=== PATIENT | male | born 1975 | race Caucasian/White ===

== ENCOUNTER → 2017-07-01 | Outpatient (CLI) | payer BC, OTHER ==
[2017-07-01 10:27] LABS: ALBUMIN/GLOBULIN RATIO 1.21 (1.00-1.93); ALKALINE PHOSPHATASE 94 U/L (45-117); ALT/SGPT 33 U/L (12-78); ANION GAP 10 MEQ/L (8-16); AST/SGOT 21 U/L (15-37); BILIRUBIN,TOTAL 0.5 MG/DL (0.2-1.0); BLOOD UREA NITROGEN 19 MG/DL (7-18); CALCIUM LEVEL 9.6 MG/DL (8.5-10.1); CARBON DIOXIDE LEVEL 27 MEQ/L (21-32); CHLORIDE LEVEL 104 MEQ/L (98-107); CHOLESTEROL LEVEL 206 MG/DL (<200); CREATININE FOR GFR 1.08 MG/DL (0.70-1.30); GLOMERULAR FILTRATION RATE > 60.0 (>60); GLUCOSE, FASTING 98 MG/DL (70-105); POTASSIUM SERUM 4.6 MEQ/L (3.5-5.1); SODIUM LEVEL 141 MEQ/L (136-145); TOTAL PROTEIN 7.3 GM/DL (6.4-8.2); TRIGLYCERIDES LEVEL 198 MG/DL (<150)
== END ==
LOC: M SMT 08:45
PROVIDERS: ATTEND Emergency Medicine
DX: I10 Essential (primary) hypertension (principal); E78.5 Hyperlipidemia, unspecified; R73.01 Impaired fasting glucose

== ENCOUNTER 2018-02-11 19:31 | Emergency (ER) | payer OTHER, BC ==
[2018-02-11] MEDS: IBUPROFEN 600 MG TAB PO (22:15)
== END 2018-02-11 22:54 | disposition home or self-care (01) ==
LOC: M ED 19:31
DX: S59.902A Unspecified injury of left elbow, initial encounter (principal); X58.XXXA Exposure to other specified factors, initial encounter; Y92.89 Other specified places as the place of occurrence of the external cause; Y35.811A Legal intervention involving manhandling, law enforcement official injured, initial encounter; Y99.0 Civilian activity done for income or pay; I10 Essential (primary) hypertension; Z79.899 Other long term (current) drug therapy
CPT/HCPCS: 73080

== ENCOUNTER → 2018-08-09 | Outpatient (CLI) | payer BC, OTHER ==
[2018-08-09 13:36] LABS: ALBUMIN 4.1 GM/DL (3.2-5.2); ALBUMIN/GLOBULIN RATIO 1.32 (1.00-1.93); ALKALINE PHOSPHATASE 100 U/L (45-117); ALT/SGPT 44 U/L (12-78); ANION GAP 5 MEQ/L (8-16); AST/SGOT 26 U/L (7-37); BILIRUBIN,TOTAL 0.4 MG/DL (0.2-1.0); BLOOD UREA NITROGEN 20 MG/DL (7-18); CALCIUM LEVEL 9.6 MG/DL (8.5-10.1); CARBON DIOXIDE LEVEL 29 MEQ/L (21-32); CHLORIDE LEVEL 106 MEQ/L (98-107); CHOLESTEROL LEVEL 241 MG/DL (<200); CHOLESTEROL RISK RATIO 6.179 (<5); CREATININE FOR GFR 0.95 MG/DL (0.70-1.30); GLOMERULAR FILTRATION RATE > 60.0 (>60); GLUCOSE, FASTING 96 MG/DL (70-100); HDL CHOLESTEROL 39 MG/DL (>40); LDL CHOLESTEROL 161 MG/DL (<100); NON-HDL-C 202 MG/DL; POTASSIUM SERUM 5.2 MEQ/L (3.5-5.1); SODIUM LEVEL 140 MEQ/L (136-145); TOTAL PROTEIN 7.2 GM/DL (6.4-8.2); TRIGLYCERIDES LEVEL 204 MG/DL (<150)
[2018-08-09 13:57] LABS: ESTIMATED AVERAGE GLUCOSE 108 MG/DL (60-110); HEMOGLOBIN A1c 5.4 %
== END ==
LOC: M SMT 08:03
DX: I10 Essential (primary) hypertension (principal); E78.5 Hyperlipidemia, unspecified; R73.01 Impaired fasting glucose
CPT/HCPCS: 80053

== ENCOUNTER 2019-05-25 08:12 | Emergency (ER) | payer BC, OTHER ==
[~2019-05-25] VITALS: Ht 180.3 cm; Wt 101.8 kg
[~2019-05-25 08:12] MED LIST: LOSA50TA88 PO; MULT1TAB10 PO; PROBCAP4 PO; TIZANIDINE; VITA500046 PO
--- NOTE | 2019-05-25 09:33 | REP ---
CHEST PA AND LATERAL: 05/25/2019. Clinical history: Cough, dyspnea. Comparison: 10/09/2010. Findings: There is patchy perihilar infiltrate or atelectasis in the left mid lung zone seen anteriorly on the lateral view involving the left upper lobe. No definite effusion or other infiltrates/atelectasis. Heart size not enlarged. There is no specific chamber enlargement. Airway and aorta intact. No widening the mediastinum. Bony thorax shows no compression deformity or focal lesion. No free air under the diaphragm. Impression: 1. Left mid lung zone anterior patchy infiltrate or atelectasis involving the left upper lobe. No pleural effusion or other infiltrate. Please correlate clinically. 2. No gross cardiomegaly, vascular redistribution, edema or other acute finding. Electronically Signed by Mikey Yanez MD 05/25/2019 03:03 P
[2019-05-25 11:27] LABS: BASO # 0.1 10^3/uL (0.0-0.2); BASO % 0.4 % (0.0-1.0); EOS % 0.1 % (0.0-3.0); HEMATOCRIT 43.1 % (42.0-52.0); HEMOGLOBIN 15.1 g/dl (13.5-17.5); LYMPH # 1.2 10^3/uL (1.5-4.5); LYMPH % 10.3 % (24.0-44.0); MEAN CORPUSCULAR HEMOGLOBIN 30.4 pg (27.0-33.0); MEAN CORPUSCULAR VOLUME 86.7 fl (80.0-96.0); MONO # 1.1 10^3/uL (0.0-0.8); MONO % 9.7 % (0.0-5.0); NEUTROPHILS # 9.2 10^3/uL (1.8-7.7); NEUTROPHILS % 79.2 % (36.0-66.0); PLATELET COUNT, AUTOMATED 245 10^3/uL (150-450); RED BLOOD COUNT 4.97 10^6/uL (4.30-6.10); WHITE BLOOD COUNT 11.6 10^3/uL (4.0-10.0)
[2019-05-25 11:58] LABS: ALBUMIN 3.7 GM/DL (3.2-5.2); BILIRUBIN,DIRECT 0.1 MG/DL (0.0-0.2); BILIRUBIN,TOTAL 0.5 MG/DL (0.2-1.0); TOTAL PROTEIN 6.8 GM/DL (6.4-8.2)
[2019-05-25] MEDS ORDERED: AZIT-12 PO (12:30)
[2019-05-25] MEDS ORDERED: TESS100C PO (12:30)
[2019-05-25] MEDS ORDERED: PROAAER10 INH (12:30)
[2019-05-25 12:37] VITALS: BP 120/79
== END 2019-05-25 12:44 | disposition home or self-care (01) ==
LOC: M ED 08:12
DX: J45.909 Unspecified asthma, uncomplicated (principal); J18.1 Lobar pneumonia, unspecified organism; I10 Essential (primary) hypertension; Z79.899 Other long term (current) drug therapy

== ENCOUNTER → 2019-06-29 | Outpatient (CLI) | payer BC, OTHER ==
[~2019-06-29] MED LIST changes: +AZIT-12 PO; +PROAAER10 INH; +TESS100C PO
[2019-06-29 13:08] LABS: BASO # 0.1 10^3/uL (0.0-0.2); BASO % 0.8 % (0.0-1.0); EOS # 0.3 10^3/uL (0.0-0.5); EOS % 3.2 % (0.0-3.0); HEMATOCRIT 46.2 % (42.0-52.0); HEMOGLOBIN 16.1 g/dl (13.5-17.5); LYMPH # 1.8 10^3/uL (1.5-5.0); LYMPH % 23.2 % (24.0-44.0); MEAN CORPUSCULAR HEMOGLOBIN 30.1 pg (27.0-33.0); MEAN CORPUSCULAR HGB CONC 34.8 g/dl (32.0-36.5); MEAN CORPUSCULAR VOLUME 86.5 fl (80.0-96.0); MONO # 0.6 10^3/uL (0.0-0.8); MONO % 7.2 % (0.0-5.0); NEUTROPHILS % 64.7 % (36.0-66.0); PLATELET COUNT, AUTOMATED 237 10^3/uL (150-450); RED BLOOD COUNT 5.34 10^6/uL (4.30-6.10); WHITE BLOOD COUNT 7.7 10^3/uL (4.0-10.0)
[2019-06-29 13:11] LABS: APPEARANCE, URINE HAZY (CLEAR); BACTERIA, URINE AUTO NEGATIVE (NEGATIVE); BILIRUBIN, URINE AUTO NEGATIVE (NEGATIVE); BLOOD, URINE BLOOD NEGATIVE (NEGATIVE); COLOR, URINE YELLOW (YELLOW); GLUCOSE, URINE (UA) AUTO NEGATIVE (NEGATIVE); KETONE, URINE AUTO NEGATIVE (NEGATIVE); LEUKOCYTE ESTERASE, URINE AUTO NEGATIVE (NEGATIVE); NITRITE, URINE AUTO NEGATIVE (NEGATIVE); PROTEIN, URINE AUTO 1+ mg/dL (NEGATIVE); RBC, URINE AUTO 0 /HPF (0-3); SPECIFIC GRAVITY URINE AUTO 1.016 (1.002-1.035); SQUAMOUS EPITHELIAL CELL UR AU 0 /HPF (0-6); UROBILINOGEN, URINE AUTO 0.2 mg/dL (0.0-2.0); WBC, URINE AUTO 0 /HPF (0-3)
[2019-06-29 13:54] LABS: HEMOGLOBIN A1c 5.4 %
[2019-06-29 13:55] LABS: ALBUMIN 4.1 GM/DL (3.2-5.2); ALT/SGPT 36 U/L (12-78); BILIRUBIN,TOTAL 0.4 MG/DL (0.2-1.0); BLOOD UREA NITROGEN 19 MG/DL (7-18); CALCIUM LEVEL 10.5 MG/DL (8.5-10.1); CARBON DIOXIDE LEVEL 27 MEQ/L (21-32); CHLORIDE LEVEL 103 MEQ/L (98-107); CHOLESTEROL LEVEL 275 MG/DL (<200); CHOLESTEROL RISK RATIO 5.288 (<5); CREATININE FOR GFR 1.13 MG/DL (0.70-1.30); FREE T4 0.97 NG/DL (0.76-1.46); GLOMERULAR FILTRATION RATE > 60.0 (>60); GLUCOSE, FASTING 99 MG/DL (70-100); HDL CHOLESTEROL 52 MG/DL (>40); LDL CHOLESTEROL 179 MG/DL (<100); NON-HDL-C 223 MG/DL; POTASSIUM SERUM 4.8 MEQ/L (3.5-5.1); SODIUM LEVEL 138 MEQ/L (136-145); TOTAL PROTEIN 7.2 GM/DL (6.4-8.2); TRIGLYCERIDES LEVEL 222 MG/DL (<150)
[2019-06-30 15:06] LABS: Lyme Disease IgG/IgM Antibodie <0.91 ISR (0.00-0.90); Lyme Disease IgM Ab Quantitati <0.80 index (0.00-0.79)
== END ==
LOC: M SMT 09:22
PROVIDERS: ATTEND Family Medicine
DX: M25.50 Pain in unspecified joint (principal); Z13.228 Encounter for screening for other metabolic disorders

== ENCOUNTER → 2019-09-28 | Outpatient (REF) | payer OTHER ==
[2019-09-28 14:10] LABS: ALBUMIN 4.1 GM/DL (3.2-5.2); ALT/SGPT 44 U/L (12-78); BILIRUBIN,TOTAL 0.7 MG/DL (0.2-1.0); BLOOD UREA NITROGEN 22 MG/DL (7-18); CALCIUM LEVEL 9.5 MG/DL (8.5-10.1); CARBON DIOXIDE LEVEL 32 MEQ/L (21-32); CHLORIDE LEVEL 102 MEQ/L (98-107); CHOLESTEROL LEVEL 185 MG/DL (<200); CHOLESTEROL RISK RATIO 4.625 (<5); CREATININE FOR GFR 0.98 MG/DL (0.70-1.30); GLOMERULAR FILTRATION RATE > 60.0 (>60); GLUCOSE, FASTING 91 MG/DL (70-100); HDL CHOLESTEROL 40 MG/DL (>40); LDL CHOLESTEROL 94 MG/DL (<100); NON-HDL-C 145 MG/DL; POTASSIUM SERUM 4.7 MEQ/L (3.5-5.1); SODIUM LEVEL 139 MEQ/L (136-145); TOTAL PROTEIN 7.4 GM/DL (6.4-8.2); TRIGLYCERIDES LEVEL 257 MG/DL (<150)
== END ==
LOC: M LAB REF 12:49
PROVIDERS: ATTEND Family Medicine
DX: E78.5 Hyperlipidemia, unspecified (principal)

== ENCOUNTER → 2019-12-11 | Outpatient (REF) | payer OTHER | LOC: M LAB REF 18:35 | PROVIDERS: ATTEND Dermatology | DX: D48.9 Neoplasm of uncertain behavior, unspecified (principal) ==

== ENCOUNTER → 2020-07-09 | Outpatient (REF) | payer OTHER ==
[~2020-07-09] MED LIST changes: +ATOR1TAB19 PO
[2020-07-09 13:20] LABS: BASO # 0.1 10^3/uL (0.0-0.2); BASO % 0.7 % (0.0-1.0); EOS # 0.2 10^3/uL (0.0-0.5); EOS % 3.2 % (0.0-3.0); HEMATOCRIT 48.3 % (42.0-52.0); HEMOGLOBIN 16.7 g/dl (13.5-17.5); LYMPH # 1.6 10^3/uL (1.5-5.0); LYMPH % 23.9 % (24.0-44.0); MEAN CORPUSCULAR HEMOGLOBIN 30.5 pg (27.0-33.0); MEAN CORPUSCULAR HGB CONC 34.6 g/dl (32.0-36.5); MEAN CORPUSCULAR VOLUME 88.1 fl (80.0-96.0); MONO # 0.7 10^3/uL (0.0-0.8); MONO % 9.6 % (0.0-5.0); NEUTROPHILS # 4.3 10^3/uL (1.5-8.5); NEUTROPHILS % 62.2 % (36.0-66.0); PLATELET COUNT, AUTOMATED 286 10^3/uL (150-450); RED BLOOD COUNT 5.48 10^6/uL (4.30-6.10); WHITE BLOOD COUNT 6.9 10^3/uL (4.0-10.0)
[2020-07-09 13:33] LABS: ALBUMIN 4.1 GM/DL (3.2-5.2); ALT/SGPT 45 U/L (12-78); BILIRUBIN,TOTAL 0.6 MG/DL (0.2-1.0); BLOOD UREA NITROGEN 16 MG/DL (7-18); CALCIUM LEVEL 9.5 MG/DL (8.5-10.1); CARBON DIOXIDE LEVEL 28 MEQ/L (21-32); CHLORIDE LEVEL 106 MEQ/L (98-107); CHOLESTEROL LEVEL 174 MG/DL (<200); CHOLESTEROL RISK RATIO 3.702 (<5); CREATININE FOR GFR 1.01 MG/DL (0.70-1.30); FREE T4 1.03 NG/DL (0.76-1.46); GLOMERULAR FILTRATION RATE > 60.0 (>60); GLUCOSE, FASTING 105 MG/DL (70-100); HDL CHOLESTEROL 47 MG/DL (>40); LDL CHOLESTEROL 94 MG/DL (<100); NON-HDL-C 127 MG/DL; POTASSIUM SERUM 4.6 MEQ/L (3.5-5.1); SODIUM LEVEL 139 MEQ/L (136-145); TOTAL PROTEIN 7.3 GM/DL (6.4-8.2); TRIGLYCERIDES LEVEL 163 MG/DL (<150)
[2020-07-09 13:38] LABS: TOTAL 25(OH) VITAMIN D 58.2 NG/ML (30.0-100.0)
[2020-07-11 23:07] LABS: Lyme Disease IgG Ab 18 kDa Ban Absent (.); Lyme Disease IgG Ab 23 kDa Ban Absent (.); Lyme Disease IgG Ab 28 kDa Ban Absent (.); Lyme Disease IgG Ab 30 kDa Ban Absent (.); Lyme Disease IgG Ab 39 kDa Ban Absent (.); Lyme Disease IgG Ab 41 kDa Ban Absent (.); Lyme Disease IgG Ab 45 kDa Ban Absent (.); Lyme Disease IgG Ab 58 kDa Ban Absent (.); Lyme Disease IgG Ab 66 kDa Ban Absent (.); Lyme Disease IgG Ab 93 kDa Ban Absent (.); Lyme Disease IgG West Blot Int Negative (.); Lyme Disease IgG/IgM Antibodie <0.91 ISR (0.00-0.90); Lyme Disease IgM Ab 23 kDa Ban Absent (.); Lyme Disease IgM Ab 39 kDa Ban Present (.); Lyme Disease IgM Ab 41 kDa Ban Present (.); Lyme Disease IgM Ab Quantitati 0.82 index (0.00-0.79); Lyme Disease IgM West Blot Int Positive (.)
== END ==
LOC: M LAB REF 12:27
PROVIDERS: ATTEND Physician Assistant
DX: L98.9 Disorder of the skin and subcutaneous tissue, unspecified (principal); E78.5 Hyperlipidemia, unspecified; I10 Essential (primary) hypertension; Z68.31 Body mass index [BMI] 31.0-31.9, adult; E66.09 Other obesity due to excess calories

== ENCOUNTER 2020-07-29 14:50 | Emergency (ER) | payer BC, OTHER ==
[~2020-07-29] VITALS: Ht 180.3 cm; Wt 105.1 kg
[~2020-07-29 14:50] MED LIST changes: -ATOR1TAB19 PO
[2020-07-29] MEDS ORDERED: ATOR1TAB19 PO (15:13)
--- NOTE | 2020-07-29 16:20 | REPVR ---
PROCEDURE INFORMATION: Exam: CT Abdomen And Pelvis Without Contrast Exam date and time: 07/29/2020 4:08 PM Age: 45 years old Clinical indication: Abdominal pain; Flank; Left; Additional info: Left flank pain TECHNIQUE: Imaging protocol: Computed tomography of the abdomen and pelvis without contrast. Radiation optimization: All CT scans at this facility use at least one of these dose optimization techniques: automated exposure control; mA and/or kV adjustment per patient size (includes targeted exams where dose is matched to clinical indication); or iterative reconstruction. COMPARISON: No relevant prior studies available. FINDINGS: Liver: Unremarkable. Gallbladder and bile ducts: Unremarkable. No ductal dilation. Pancreas: Unremarkable. No ductal dilation. Spleen: Unremarkable. Adrenals: Unremarkable. Kidneys and ureters: No hydronephrosis or stones. Stomach and bowel: Stomach is unremarkable. No small bowel obstruction. Large bowel is unremarkable. Appendix: No evidence of appendicitis. Intraperitoneal space: No pneumoperitoneum. No significant fluid collection. Vasculature: Unremarkable. Lymph nodes: No enlarged lymph nodes. Urinary bladder: Unremarkable as visualized. Reproductive: Unremarkable as visualized. Bones/joints: No acute osseus lesion or fracture. Soft tissues: Unremarkable. IMPRESSION: No acute intra-abdominal findings. Electronically signed by: Chaz Mcgovern On 07/29/2020 16:20:06 PM
[2020-07-29 16:34] LABS: ALBUMIN 3.9 GM/DL (3.2-5.2); ALT/SGPT 60 U/L (12-78); BILIRUBIN,DIRECT 0.1 MG/DL (0.0-0.2); BILIRUBIN,TOTAL 0.3 MG/DL (0.2-1.0); BLOOD UREA NITROGEN 18 MG/DL (7-18); CALCIUM LEVEL 9.8 MG/DL (8.5-10.1); CARBON DIOXIDE LEVEL 28 MEQ/L (21-32); CHLORIDE LEVEL 105 MEQ/L (98-107); CREATININE FOR GFR 1.01 MG/DL (0.70-1.30); GLOMERULAR FILTRATION RATE > 60.0 (>60); GLUCOSE, FASTING 125 MG/DL (70-100); POTASSIUM SERUM 4.3 MEQ/L (3.5-5.1); SODIUM LEVEL 139 MEQ/L (136-145); TOTAL PROTEIN 7.5 GM/DL (6.4-8.2)
[2020-07-29 17:25] VITALS: BP 169/98
== END 2020-07-29 17:25 | disposition home or self-care (01) ==
LOC: M ED 14:50
DX: R10.32 Left lower quadrant pain (principal); R42 Dizziness and giddiness; N50.812 Left testicular pain; I10 Essential (primary) hypertension; E78.5 Hyperlipidemia, unspecified; A69.20 Lyme disease, unspecified; Z79.899 Other long term (current) drug therapy

== ENCOUNTER → 2020-07-30 | Outpatient (REF) | payer BC, OTHER ==
[~2020-07-30] MED LIST changes: +ATOR1TAB19 PO
[2020-07-30 15:58] LABS: BASO # 0.1 10^3/uL (0.0-0.2); BASO % 0.6 % (0.0-1.0); EOS # 0.2 10^3/uL (0.0-0.5); EOS % 1.7 % (0.0-3.0); HEMATOCRIT 48.3 % (42.0-52.0); HEMOGLOBIN 16.8 g/dl (13.5-17.5); LYMPH # 1.9 10^3/uL (1.5-5.0); LYMPH % 21.2 % (24.0-44.0); MEAN CORPUSCULAR HEMOGLOBIN 30.4 pg (27.0-33.0); MEAN CORPUSCULAR HGB CONC 34.8 g/dl (32.0-36.5); MEAN CORPUSCULAR VOLUME 87.3 fl (80.0-96.0); MONO # 0.7 10^3/uL (0.0-0.8); NEUTROPHILS # 6.1 10^3/uL (1.5-8.5); NEUTROPHILS % 67.9 % (36.0-66.0); PLATELET COUNT, AUTOMATED 293 10^3/uL (150-450); RED BLOOD COUNT 5.53 10^6/uL (4.30-6.10)
[2020-07-30 16:34] LABS: MONO SCRN NEGATIVE (NEGATIVE)
== END ==
LOC: M LAB REF 14:59
PROVIDERS: ATTEND Physician Assistant
DX: R10.12 Left upper quadrant pain (principal); Z20.828 Contact with and (suspected) exposure to other viral communicable diseases; R53.83 Other fatigue

== ENCOUNTER → 2021-01-05 | Outpatient (CLI) | payer SELFPAY | LOC: M LABSMTC 13:51 | PROVIDERS: ATTEND Pediatrics | DX: Z11.52 Encounter for screening for COVID-19 (principal) ==

== ENCOUNTER → 2021-08-07 | Outpatient (CLI) | payer OTHER, BC ==
[2021-08-07 13:03] LABS: BASO # 0.1 10^3/uL (0.0-0.2); BASO % 0.7 % (0.0-1.0); EOS # 0.2 10^3/uL (0.0-0.5); EOS % 2.1 % (0.0-3.0); HEMATOCRIT 46.6 % (42.0-52.0); HEMOGLOBIN 16.1 g/dl (13.5-17.5); LYMPH # 2.1 10^3/uL (1.5-5.0); LYMPH % 25.5 % (24.0-44.0); MEAN CORPUSCULAR HEMOGLOBIN 30.4 pg (27.0-33.0); MEAN CORPUSCULAR HGB CONC 34.5 g/dl (32.0-36.5); MEAN CORPUSCULAR VOLUME 87.9 fl (80.0-96.0); MONO # 0.8 10^3/uL (0.0-0.8); MONO % 9.4 % (2.0-8.0); NEUTROPHILS # 5.1 10^3/uL (1.5-8.5); NEUTROPHILS % 61.7 % (36.0-66.0); PLATELET COUNT, AUTOMATED 283 10^3/uL (150-450); WHITE BLOOD COUNT 8.2 10^3/uL (4.0-10.0)
[2021-08-07 13:42] LABS: BLOOD UREA NITROGEN 16 MG/DL (7-18); CALCIUM LEVEL 9.2 MG/DL (8.5-10.1); CARBON DIOXIDE LEVEL 30 MEQ/L (21-32); CHLORIDE LEVEL 105 MEQ/L (98-107); CREATININE FOR GFR 1.08 MG/DL (0.70-1.30); GLOMERULAR FILTRATION RATE > 60.0 (>60); GLUCOSE, FASTING 94 MG/DL (70-100); POTASSIUM SERUM 4.6 MEQ/L (3.5-5.1); SODIUM LEVEL 139 MEQ/L (136-145)
--- NOTE | 2021-08-07 15:12 | ECGEPIP ---
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
== END ==
LOC: M LAB 12:13
PROVIDERS: ATTEND Physician Assistant
DX: Z01.818 Encounter for other preprocedural examination (principal); I45.10 Unspecified right bundle-branch block; I44.4 Left anterior fascicular block; I10 Essential (primary) hypertension

== ENCOUNTER → 2021-08-14 | Outpatient (CLI) | payer OTHER, BC ==
[~2021-08-14] MED LIST changes: +LOSA100T50 PO; +MELO7.5T35 PO
== END ==
LOC: M LABSMTC 09:31
PROVIDERS: ATTEND Anesthesiology
DX: Z01.812 Encounter for preprocedural laboratory examination (principal); Z20.822 Contact with and (suspected) exposure to COVID-19

== ENCOUNTER 2021-08-19 09:55 | Day surgery (SDC) | payer BC, OTHER ==
[~2021-08-19] VITALS: Ht 180.3 cm; Wt 106.0 kg
[~2021-08-19 09:55] MED LIST changes: +NS 1,000 ML IV ONE
--- OUTSIDE RECORDS SUMMARY | 2021-08-19 09:58 | CCD ---
Author Organization Unknown Address [address] [place] [address] Phone [phone] Care Team Providers Care Property And Equipment Clerk Name Role Phone Wes Lopez Unavailable Unavailable Allergies Code Code System Name Reaction Severity Status Onset Cat Dander Active 06/05/2019 NKDA Notes: CATS Medications Name Status Start Date Stop Date atorvastatin 10 mg tablet Take 1 tablet every day by oral route in the morning. Active Not available doxycycline hyclate 100 mg tablet TAKE ONE TABLET BY MOUTH TWICE A DAY FOR 14 DAYS Active Not available losartan 100 mg tablet Take 1 tablet every day by oral route. Active Not available meloxicam 7.5 mg tablet Take 1 tablet twice a day by oral route. Active Not available Problems Name Status Onset Date Source Melanocytic Nevus Active 06/05/2019 History Hypertensive Disorder Active 06/05/2019 History Endocrine/metabolic Screening Unknown 06/05/[address] Concept Unknown 06/05/2019 History Hyperlipidemia Active 07/06/2019 History Simple Obesity Active 05/22/2020 History Body Mass Index 30+ - Obesity Active 05/22/2020 Hi story Disorder of Skin And/or Subcutaneous Tissue Active 03/2020 History Lyme Disease Unknown 07/17/2020 History Impaired Fasting Glycemia Active 07/17/2020 Histor y Influenza Vaccine Needed Unknown 07/17/2020 History Patient Asked to Attend Unknown 07/17/2020 History Left Upper Quadrant Pain Unknown 07/30/2020 History Exposure to Communicable Disease Unknown 07/30/2020 History Finding of General Energy Active 07/30/2020 Histor y Pain in Right Knee Active 05/29/2021 Procedures Notes: wisdom teeth Results Lab Results None recorded. Past Encounters 06/16/2021 Hypertensive Disorder; Simple Obesity; HIV Screening; Impaired Fasting Glycemia; Hepatitis C Screening DAVID Willis: [address] [facility], [address], [place] [address], Ph. 05/29/2021 Adult Health Examination; Hypertensive Disorder; Simple Obesity; Active or Passive Immunization; HIV Screening; Hepatitis C Screening; Impaired Fasting Glycemia; Pain in Right Knee; Screening for Malignant Neoplasm of Colon Wes Lopez, RPA-C: [address] [facility], [facility] [address], [place] [address], Ph. Social History Tobacco Smoking Status Never Smoker Vaccine List Vaccine Type COVID-19, mRNA, LNP-S, PF, 100 mcg/0.5 m L dose 11/28/2020 12/26/2020 influenza, injectable, quadrivalent, pre servative free 07/17/20200.5 mL Tdap 10.5 mL Plan of Care Reminders Provider Appointments None recorded. Lab None recorded. Referral None recorded. Procedures None recorded. Surgeries None recorded. Imaging None recorded. Vitals 05/29/2021 09:30AM ANNUAL EXAM Height Weight BMI Blood Pressure 71 in 236 lbs 32.9 kg/m2 (1) 141/79 mm[H g] (2) 134/88 mm[Hg] 07/30/2020 Height Weight BMI Blood Pressure 71 in 230 lbs 12.8 oz 32.31 kg/m2 133/84 mm[H g] 07/17/2020 Height Weight BMI Blood Pressure 71 in 230 lbs 32.19 kg/m2 136/87 mm[Hg] 05/22/2020 Height Weight BMI Blood Pressure 71 in 227 lbs 31.77 kg/m2 135/90 mm[Hg] 10/05/2019 Height Weight BMI Blood Pressure 71 in 230 lbs 6.08 oz 32.25 kg/m2 118/83 mm[H g] 07/06/2019 Height Weight BMI Blood Pressure 71 in 223 lbs 31.21 kg/m2 129/87 mm[Hg] 06/05/2019 Height Weight BMI Blood Pressure 71 in 221 lbs 6.08 oz 30.99 kg/m2 124/88 mm[H g]
--- OUTSIDE RECORDS SUMMARY | 2021-08-19 09:58 | CCD ---
Author Organization Unknown Address [address] [place] [address] Phone [phone] Care Team Providers Care Rodeo Performer Name Role Phone Wes Lopez Unavailable Unavailable Allergies Code Code System Name Reaction Severity Status Onset Cat Dander Active 9 NKDA Notes: CATS Medications Name Status Start Date Stop Date atorvastatin 10 mg tablet Take 1 tablet every day by oral route in the morning. Active Not available losartan 100 mg tablet [...] Results Lab Results None recorded. Past Encounters 05/29/2021 Adult Health Examination; Hypertensive Disorder; Simple Obesity; Active or Passive Immunization; HIV Screening; Hepatitis C Screening; Impaired Fasting Glycemia; Pain in Right Knee; Screening for Malignant Neoplasm of Colon LINDA WillisC: [address] [facility], [address], [place] [address], Ph. Social History Tobacco Smoking Status Never [...]
--- OUTSIDE RECORDS SUMMARY | 2021-08-19 09:58 | CCD | Continuity of Care Document ---
Author Author [place] Organization Unknown Address [address] [facility], [address] [place] [address] Phone [phone] Care Team Providers Care Supervisor Cigar Making Hand Name Role Phone Wes Lopez AUTM [phone] Problems Active Problems Provider Date Essential hypertension Chemo Ceballos MD Onset: 019 Social History Type Date Description Comments Sex Unknown ETOH Use Sociable Tobacco Use Start: Unknown Denies Smoking Recreational Drug Use Denies Drug Use Allergies, Adverse Reactions, Alerts Description No Known Drug Allergies Medications Active Medications SIG Qnty Indications Ordering Provide r Date Losartan Potassium 100mg Tablets Take One Tablet By Mouth Every Day Unknown Atorvastatin Calcium 10mg Tablets One tab once daily Unknown Meloxicam 7.5mg Tablets one tab once daily Unknown Immunizations Description No Information Available Vital Signs Date Vital Result Comment 06/09/2021 1:03pm BP Systolic 120 mmHg BP Diastolic 82 mmHg Body Temperature 98.7 F Height 71 inches 5'11" Weight 236.00 lb BMI (Body Mass Index) 32.9 kg/m2 [place] Body Weight 172 lb Weight 107.050 kg BSA (Body Surface Area) 2.26 m2 08/14/2019 9:47am BP Systolic 171 mmHg BP Diastolic 83 mmHg Height 71 inches 5'11" Weight 226.12 lb BMI (Body Mass Index) 31.5 kg/m2 [place] Body Weight 172 lb Weight 102.570 kg BSA (Body Surface Area) 2.22 m2 Results Description No Information Available Procedures Date Code Description Status 06/09/2021 [address]14[address] Office/Outpatient New Low MDM 30 -44 Minutes Completed Medical Devices Description No Information Available Encounters Type Date Location Provider Dx Diagnosis Office Visit 06/09/2021 1:00p [facility] GHASSAN Hansen Z12.11 Encounter for screening for malignant ne oplasm of colon Assessments Date Code Description Provider 06/09/2021 Z12.11 Encounter for screening for jose r gnant neoplasm of colon GHASSAN San Plan of Treatment No Information Available Functional Status Description No Information Available Mental Status Description No Information Available Referrals Refer to Reason for Referral Status Appt Date Chemo Ceballos MD COLONOSCOPY Scheduled 06/09/[address] [place] [address] [phone]
--- OUTSIDE RECORDS SUMMARY | 2021-08-19 09:59 | CCD ---
Author Author [facility] Address Unknown Phone Unavailable Care Team Providers Care Supervisor [employer] Name Role Phone LOPEZ, SHAE WES RPA-C Unavailable Unavailable LOPEZ, SHAE WES RPA-C Unavailable Unavailable LOPEZ, SHAE WES RPA-C Unavailable Unavailable LOPEZ, SHAE WES RPA-C Unavailable Unavailable LOPEZ, SHAE WES RPA-C Unavailable Unavailable LOPEZ, SHAE WES RPA-C Unavailable Unavailable LOPEZ, SHAE WES RPA-C Unavailable Unavailable LOPEZ, SHAE WES RPA-C Unavailable Unavailable LOPEZ, SHAE WES RPA-C Unavailable Unavailable LOPEZ, SHAE WES RPA-C Unavailable Unavailable LOPEZ, SHAE WES RPA-C Unavailable Unavailable LOPEZ, SHAE WES RPA-C Unavailable Unavailable LOPEZ, SHAE WES RPA-C Unavailable Unavailable LOPEZ, SHAE WES RPA-C Unavailable Unavailable LOPEZ, SHAE WES RPA-C Unavailable Unavailable LOPEZ, SHAE WES RPA-C Unavailable Unavailable LOPEZ, SHAE WES RPA-C Unavailable Unavailable LOPEZ, SHAE WES RPA-C Unavailable Unavailable LOPEZ, SHAE WES RPA-C Unavailable Unavailable LOPEZ, SHAE WES RPA-C Unavailable Unavailable LOPEZ, SHAE WES RPA-C Unavailable Unavailable LOPEZ, SHAE WES RPA-C Unavailable Unavailable LOPEZ, SHAE WES RPA-C Unavailable Unavailable LOPEZ, SHAE WES RPA-C Unavailable Unavailable LOPEZ, SHAE WES RPA-C Unavailable Unavailable LOPEZ, SHAE WES RPA-C Unavailable Unavailable LOPEZ, SHAE WES RPA-C Unavailable Unavailable LOPEZ, SHAE WES RPA-C Unavailable Unavailable LOPEZ, SHAE WES RPA-C Unavailable Unavailable LOPEZ, SHAE WES RPA-C Unavailable Unavailable LOPEZ, SHAE WES RPA-C Unavailable Unavailable LOPEZ, SHAE WES RPA-C Unavailable Unavailable LOPEZ, SHAE WES RPA-C Unavailable Unavailable LOPEZ, SHAE WES RPA-C Unavailable Unavailable LOPEZ, SHAE WES RPA-C Unavailable Unavailable LOPEZ, SHAE WES RPA-C Unavailable Unavailable LOPEZ, SHAE WES RPA-C Unavailable Unavailable LOPEZ, SHAE WES RPA-C Unavailable Unavailable LOPEZ, SHAE WES RPA-C Unavailable Unavailable LOPEZ, SHAE WES RPA-C Unavailable Unavailable LOPEZ, SHAE WES RPA-C Unavailable Unavailable LOPEZ, SHAE WES RPA-C Unavailable Unavailable LOPEZ, SHAE WES RPA-C Unavailable Unavailable LOPEZ, SHAE WES RPA-C Unavailable Unavailable LOPEZ, SHAE WES RPA-C Unavailable Unavailable LOPEZ, SHAE WES RPA-C Unavailable Unavailable LOPEZ, SHAE WES RPA-C Unavailable Unavailable LOPEZ, SHAE WES RPA-C Unavailable Unavailable LOPEZ, SHAE WES RPA-C Unavailable Unavailable LOPEZ, SHAE WES RPA-C Unavailable Unavailable LOPEZ, SHAE WES RPA-C Unavailable Unavailable LOPEZ, SHAE WES RPA-C Unavailable Unavailable LOPEZ, SHAE WES RPA-C Unavailable Unavailable LOPEZ, SHAE WES RPA-C Unavailable Unavailable LOPEZ, SHAE WES RPA-C Unavailable Unavailable LOPEZ, SHAE WES RPA-C Unavailable Unavailable LOPEZ, SHAE WES RPA-C Unavailable Unavailable LOPEZ, SHAE WES RPA-C Unavailable Unavailable LOPEZ, SHAE WES RPA-C Unavailable Unavailable LOPEZ, SHAE WES RPA-C Unavailable Unavailable LOPEZ, SHAE WES RPA-C Unavailable Unavailable LOPEZ, SHAE WES RPA-C Unavailable Unavailable LOPEZ, SHAE WES RPA-C Unavailable Unavailable LOPEZ, SHAE WES RPA-C Unavailable Unavailable LOPEZ, SHAE WES RPA-C Unavailable Unavailable LOPEZ, SHAE WES RPA-C Unavailable Unavailable LOPEZ, SHAE WES RPA-C Unavailable Unavailable LOPEZ, SHAE WES RPA-C Unavailable Unavailable LOPEZ, SHAE WES RPA-C Unavailable Unavailable LOPEZ, SHAE WES RPA-C Unavailable Unavailable LOPEZ, SHAE WES RPA-C Unavailable Unavailable LOPEZ, SHAE WES RPA-C Unavailable Unavailable LOPEZ, SHAE WES RPA-C Unavailable Unavailable LOPEZ, SHAE WES RPA-C Unavailable Unavailable LOPEZ, SHAE WES RPA-C Unavailable Unavailable LOPEZ, SHAE WES RPA-C Unavailable Unavailable LOPEZ, SHAE WES RPA-C Unavailable Unavailable LOPEZ, SHAE WES RPA-C Unavailable Unavailable LOPEZ, SHAE WES RPA-C Unavailable Unavailable LOPEZ, SHAE WES RPA-C Unavailable Unavailable LOPEZ, SHAE WES RPA-C Unavailable Unavailable LOPEZ, SHAE WES RPA-C Unavailable Unavailable LOPEZ, SHAE WES RPA-C Unavailable Unavailable LOPEZ, SHAE EWS RPA-C Unavailable Unavailable LOPEZ, SHAE WES RPA-C Unavailable Unavailable LOPEZ, SHAE WES RPA-C Unavailable Unavailable Ethan, Key Singh MD Unavailable Unavailab le Ethan, Key Singh MD Unavailable Unavailab le Ethan, Key Singh MD Unavailable Unavailab le Ethan, Key Singh MD Unavailable Unavailab le Ethan, Key Singh MD Unavailable Unavailab le Ethan, Key Singh MD Unavailable Unavailab le Ethan, Key Singh MD Unavailable Unavailab le Ethan, Key Singh MD Unavailable Unavailab le Ethan, Key Singh MD Unavailable Unavailab le Ethan, Key Singh MD Unavailable Unavailab le Ethan, Key Singh MD Unavailable Unavailab le Ethan, Key Singh MD Unavailable Unavailab le Ethan, Key Singh MD Unavailable Unavailab le Ethan, Key Singh MD Unavailable Unavailab le Ethan, Key Singh MD Unavailable Unavailab le Ethan, Key Singh MD Unavailable Unavailab le Ethan, Key Singh MD Unavailable Unavailab le Ethan, Key Singh MD Unavailable Unavailab le Ethan, Key Singh MD Unavailable Unavailab le Ethan, Key Singh MD Unavailable Unavailab le Ethan, Key Singh MD Unavailable Unavailab le Ethan, Key Singh MD Unavailable Unavailab le Ethan, Key Singh MD Unavailable Unavailab le Ethan, Key Singh MD Unavailable Unavailab le Ethan, Key Singh MD Unavailable Unavailab le Ethan, Key Singh MD Unavailable Unavailab le Ethan, Key Singh MD Unavailable Unavailab le Ethan, Key Singh MD Unavailable Unavailab le Ethan, Key Singh MD Unavailable Unavailab le Ethan, Key Singh MD Unavailable Unavailab le Ethan, Key Singh MD Unavailable Unavailab le Ethan, Key Singh MD Unavailable Unavailab le Ethan, Key Singh MD Unavailable Unavailab le Ethan, Key Singh MD Unavailable Unavailab le Ethan, Key Singh MD Unavailable Unavailab le Ethan, Key Singh MD Unavailable Unavailab le Ethan, Key Singh MD Unavailable Unavailab le Ethan, Key Singh MD Unavailable Unavailab le Ethan, Key Singh MD Unavailable Unavailab le Ethan, Key Singh MD Unavailable Unavailab le Ethan, Key Singh MD Unavailable Unavailab le Ethan, Key Singh MD Unavailable Unavailab le Ethan, Key Singh MD Unavailable Unavailab le Ethan, Key Singh MD Unavailable Unavailab le Ethan, Key Singh MD Unavailable Unavailab le Ethan, Key Singh MD Unavailable Unavailab le Ethan, Key Singh MD Unavailable Unavailab le Ethan, Key Singh MD Unavailable Unavailab le Ethan, Key Singh MD Unavailable Unavailab le Ethan, Key Singh MD Unavailable Unavailab le Ethan, Key Singh MD Unavailable Unavailab le Etahn, Key Singh MD Unavailable Unavailab le Ethan, Key Singh MD Unavailable Unavailab le Ethan, Key Singh MD Unavailable Unavailab le Ethan, Key Singh MD Unavailable Unavailab le Ethan, Key Singh MD Unavailable Unavailab le Ethan, Key Singh MD Unavailable Unavailab le Ethan, Key Singh MD Unavailable Unavailab le Ethan, Key Singh MD Unavailable Unavailab le Ethan, Key Singh MD Unavailable Unavailab le Ethan, Key Singh MD Unavailable Unavailab le Ethan, Key Singh MD Unavailable Unavailab le Ethan, Key Singh MD Unavailable Unavailab le Ethan, Key Singh MD Unavailable Unavailab le Ethan, Key Singh MD Unavailable Unavailab le Ethan, Key Singh MD Unavailable Unavailab le Ethan, Key Singh MD Unavailable Unavailab le Ethan, Key Singh MD Unavailable Unavailab le Ethan, Key Singh MD Unavailable Unavailab le Ethan, Key Singh MD Unavailable Unavailab le Ethan, Key Singh MD Unavailable Unavailab le Ethan, Key Singh MD Unavailable Unavailab le Ethan, Key Singh MD Unavailable Unavailab le Ethan, Key Singh MD Unavailable Unavailab le Ethan, Key Singh MD Unavailable Unavailab le Ethan, Key Singh MD Unavailable Unavailab le Ethan, Key Singh MD Unavailable Unavailab le Ethan, Key Singh MD Unavailable Unavailab le Ethan, Key Singh MD Unavailable Unavailab le Ethan, Key Singh MD Unavailable Unavailab le Ethan, Key Singh MD Unavailable Unavailab le Ethan, Key Singh MD Unavailable Unavailab le Ethan, Key Singh MD Unavailable Unavailab le Ethan, Key Singh MD Unavailable Unavailab le Ethan, Key Singh MD Unavailable Unavailab le Ethan, Key Singh MD Unavailable Unavailab le Ethan, Key Singh MD Unavailable Unavailab le Ethan, Key Singh MD Unavailable Unavailab le Ethan, Key Singh MD Unavailable Unavailab le Ethan, Key Singh MD Unavailable Unavailab le Ethan, Key Singh MD Unavailable Unavailab le Ethan, Key Singh MD Unavailable Unavailab le Ethan, Key Singh MD Unavailable Unavailab le Ethan, Key Singh MD Unavailable Unavailab le Ethan, Key Singh MD Unavailable Unavailab le Ethan, Key Singh MD Unavailable Unavailab le Ethan, Key Singh MD Unavailable Unavailab le Ethan, Key Singh MD Unavailable Unavailab le Ethan, Key Singh MD Unavailable Unavailab le Ethan, Key Singh MD Unavailable Unavailab le Ethan, Key Singh MD Unavailable Unavailab le Ethan, Key Singh MD Unavailable Unavailab Jody Lino MD Unavailable Unavailable Jody Denney MD Unavailable Unavailable Jody Denney MD Unavailable Unavailable Jody Denney MD Unavailable Unavailable Jody Denney MD Unavailable Unavailable Jody Denney MD Unavailable Unavailable Jody Denney MD Unavailable Unavailable Jody Denney MD Unavailable Unavailable Jody Denney MD Unavailable Unavailable Jody Denney MD Unavailable Unavailable Jody Denney MD Unavailable Unavailable Jody Denney MD Unavailable Unavailable Jody Denney MD Unavailable Unavailable Jody Denney MD Unavailable Unavailable Jody Denney MD Unavailable Unavailable Jody Denney MD Unavailable Unavailable Jody Denney MD Unavailable Unavailable Jody Denney MD Unavailable Unavailable Jody Denney MD Unavailable Unavailable Jody Denney MD Unavailable Unavailable Jody Denney MD Unavailable Unavailable Jody Denney MD Unavailable Unavailable Jody Denney MD Unavailable Unavailable BogosianJody MD Unavailable Unavailable Bogosian, Jody Roland MD Unavailable Unavailable Bogosian, Jody Roland MD Unavailable Unavailable Bogosian, Jody Roland MD Unavailable Unavailable Bogosian, Jody Roland MD Unavailable Unavailable Bogosian, Jody Roland MD Unavailable Unavailable Bogosian, Jody Roland MD Unavailable Unavailable Bogosileatha, Jody Roland MD Unavailable Unavailable Bogosian, Jody Roland MD Unavailable Unavailable Bogosian, Jody Roland MD Unavailable Unavailable Bogosian, Jody Roland MD Unavailable Unavailable Bogosian, Jody Roland MD Unavailable Unavailable Bogosian, Jody Roland MD Unavailable Unavailable Bogosian, Jody Roland MD Unavailable Unavailable Bogosian, Jody Roland MD Unavailable Unavailable Bogosian, Jody Roland MD Unavailable Unavailable Bogosian, Jody Roland MD Unavailable Unavailable Bogosian, Jody Roland MD Unavailable Unavailable Bogosian, Jody Roland MD Unavailable Unavailable Bogosian, Jody Roland MD Unavailable Unavailable Bogosian, Jody Roland MD Unavailable Unavailable Bogosian, Jdoy Roland MD Unavailable Unavailable Bogosian, Jody Roland MD Unavailable Unavailable Bogosian, Jody Roland MD Unavailable Unavailable Bogosian, Jody Roland MD Unavailable Unavailable Bogosian, Jody Roland MD Unavailable Unavailable Bogosian, Jody Roland MD Unavailable Unavailable Bogosian, Jody Roland MD Unavailable Unavailable Bogosian, Jody Roland MD Unavailable Unavailable Bogosian, Jody Roland MD Unavailable Unavailable Bogosian, Jody Roland MD Unavailable Unavailable Bogosian, Jody Roland MD Unavailable Unavailable Bogosileatha, Jody Roland MD Unavailable Unavailable Bogosian, Jody Roland MD Unavailable Unavailable Bogosian, Jody Roland MD Unavailable Unavailable Bogosian, Jody Roland MD Unavailable Unavailable Bogosian, Jody Roland MD Unavailable Unavailable Bogosileatha, Jody Roland MD Unavailable Unavailable Bogosileatha, Jody Roland MD Unavailable Unavailable BogosiJody zhang MD Unavailable Unavailable BogosiJody zhang MD Unavailable Unavailable Bogosileatha, Jody Roland MD Unavailable Unavailable Bogosian, Jody Roland MD Unavailable Unavailable Bogosian, Jody Roland MD Unavailable Unavailable Bogosileatha, Jody Roland MD Unavailable Unavailable Bogkit, Jody Roland MD Unavailable Unavailable Bogosileatha, Jody Roland MD Unavailable Unavailable Bogosileatha, Jody Roland MD Unavailable Unavailable Bogosian, Jody Roland MD Unavailable Unavailable Bogosian, Jody Roland MD Unavailable Unavailable Bogosian, Jody Roland MD Unavailable Unavailable Bogosian, Jody Roland MD Unavailable Unavailable Bogosian, Jody Roland MD Unavailable Unavailable Bogosian, Jody Roland MD Unavailable Unavailable Bogosian, Jody Roland MD Unavailable Unavailable Bogosian, Jody Roland MD Unavailable Unavailable LOPEZ, SHAE WES RPA-C Unavailable Unavailable LOPEZ, SHAE WES RPA-C Unavailable Unavailable LOPEZ, SHAE WES RPA-C Unavailable Unavailable LOPEZ, SHAE WES RPA-C Unavailable Unavailable LOPEZ, SHAE WES RPA-C Unavailable Unavailable LOPEZ, SHAE WES RPA-C Unavailable Unavailable LOPEZ, SHAE WES RPA-C Unavailable Unavailable LOPEZ, SHAE WES RPA-C Unavailable Unavailable LOPEZ, SHAE WES RPA-C Unavailable Unavailable LOPEZ, SHAE WES RPA-C Unavailable Unavailable LOPEZ, SHAE WES RPA-C Unavailable Unavailable LOPEZ, SHAE WES RPA-C Unavailable Unavailable LOPEZ, SHAE WES RPA-C Unavailable Unavailable LOPEZ, SHAE WES RPA-C Unavailable Unavailable LOPEZ, SHAE WES RPA-C Unavailable Unavailable LOPEZ, SHAE WES RPA-C Unavailable Unavailable LOPEZ, SHAE WES RPA-C Unavailable Unavailable LOPEZ, SHAE WES RPA-C Unavailable Unavailable LOPEZ, SHAE WES RPA-C Unavailable Unavailable LOPEZ, SHAE WES RPA-C Unavailable Unavailable LOPEZ, SHAE WES RPA-C Unavailable Unavailable LOPEZ, SHAE WES RPA-C Unavailable Unavailable LOPEZ, SHAE WES RPA-C Unavailable Unavailable LOPEZ, SHAE WES RPA-C Unavailable Unavailable LOPEZ, SHAE WES RPA-C Unavailable Unavailable LOPEZ, SHAE WES RPA-C Unavailable Unavailable LOPEZ, SHAE WES RPA-C Unavailable Unavailable LOPEZ, SHAE WES RPA-C Unavailable Unavailable LOPEZ, SHAE WSE RPA-C Unavailable Unavailable LOPEZ, SHAE WES RPA-C Unavailable Unavailable LOPEZ, SHAE WES RPA-C Unavailable Unavailable LOPEZ, SHAE WES RPA-C Unavailable Unavailable LOPEZ, SHAE WES RPA-C Unavailable Unavailable LOPEZ, SHAE WES RPA-C Unavailable Unavailable LOPEZ, SHAE WES RPA-C Unavailable Unavailable LOPEZ, SHAE WES RPA-C Unavailable Unavailable LOPEZ, SHAE WES RPA-C Unavailable Unavailable LOPEZ, SHAE WES RPA-C Unavailable Unavailable LOPEZ, SHAE WES RPA-C Unavailable Unavailable LOPEZ, SHAE WES RPA-C Unavailable Unavailable LOPEZ, SHAE WES RPA-C Unavailable Unavailable LOPEZ, SHAE WES RPA-C Unavailable Unavailable LOPEZ, SHAE WES RPA-C Unavailable Unavailable Arteaga, Alisa Danitza PA Unavailable Unavailable Arteaga, Alisa Danitza PA Unavailable Unavailable Arteaga, Alisa Danitza PA Unavailable Unavailable Arteaga, Alisa Danitza PA Unavailable Unavailable Arteaga, Alisa Danitza PA Unavailable Unavailable Arteaga, Alisa Danitza PA Unavailable Unavailable Arteaga, Alisa Danitza PA Unavailable Unavailable Arteaga, Alisa Danitza PA Unavailable Unavailable Arteaga, Alisa Danitza PA Unavailable Unavailable Arteaga, Alisa Danitza PA Unavailable Unavailable DERRELL QUINONEZ MD Unavailable Unavailable DERRELL QUINONEZ MD Unavailable Unavailable DERRELL QUINONEZ MD Unavailable Unavailable DERRELL QUINONEZ MD Unavailable Unavailable DERRELL QUINONEZ MD Unavailable Unavailable DERRELL QUINONEZ MD Unavailable Unavailable DERRELL QUINONEZ MD Unavailable Unavailable DERRELL QUINONEZ MD Unavailable Unavailable DERRELL QUINONEZ MD Unavailable Unavailable DERRELL QUINONEZ MD Unavailable Unavailable DERRELL QUINONEZ MD Unavailable Unavailable DERRELL QUINONEZ MD Unavailable Unavailable DERRELL QUINONEZ MD Unavailable Unavailable DERRELL QUINONEZ MD Unavailable Unavailable DERRELL QUINONEZ MD Unavailable Unavailable DERRELL QUINONEZ MD Unavailable Unavailable DERRELL QUINONEZ MD Unavailable Unavailable DERRELL QUINONEZ MD Unavailable Unavailable DERRELL QUINONEZ MD Unavailable Unavailable DERRELL QUINONEZ MD Unavailable Unavailable DERRELL QUINONEZ MD Unavailable Unavailable DERRELL QUINONEZ MD Unavailable Unavailable DERRELL QUINONEZ MD Unavailable Unavailable DERRELL QUINONEZ MD Unavailable Unavailable DERRELL QUINONEZ MD Unavailable Unavailable DERRELL QUINONEZ MD Unavailable Unavailable DERRELL QUINONEZ MD Unavailable Unavailable DERRELL QUINONEZ MD Unavailable Unavailable DERRELL QUINONEZ MD Unavailable Unavailable DERRELL QUINONEZ MD Unavailable Unavailable DERRELL QUINONEZ MD Unavailable Unavailable BLACKDERRELLOPHER Unavailable Unavailable BLACK, DERRELL CHRISTOPHER Unavailable Unavailable BLACKDRERELLOPHER Unavailable Unavailable DERRELL QUINONEZER Unavailable Unavailable DERRELL QUINONEZER Unavailable Unavailable DERRELL QUINONEZER Unavailable Unavailable DERRELL QUINONEZER Unavailable Unavailable DERRELL QUINONEZOPHER Unavailable Unavailable BLACKDERRELLOPHER Unavailable Unavailable BLACKDERRELLER Unavailable Unavailable BLACKDERRELLOPHER Unavailable Unavailable BLACKDERRELLOPHER Unavailable Unavailable BLACKDERRELL CHRISTOPHER Unavailable Unavailable BLACKDERRELL CHRISTOPHER Unavailable Unavailable BLACKDERRELL CHRISTOPHER Unavailable Unavailable DERRELL QUINONEZER Unavailable Unavailable DERRELL QUINONEZER Unavailable Unavailable DERRELL QUINONEZER Unavailable Unavailable DERRELL QUINONEZER Unavailable Unavailable DERRELL QUINONEZER Unavailable Unavailable DERRELL QUINONEZ MD Unavailable Unavailable DERRELL QUINONEZ MD Unavailable Unavailable DERRELL QUINONEZ MD Unavailable Unavailable DERRELL QUINONEZ MD Unavailable Unavailable Godwin, L Angelina RPA Unavailable Unavailable Godwin, L Angelina RPA Unavailable Unavailable Godwin, L Angelina RPA Unavailable Unavailable Godwin, L Angelina RPA Unavailable Unavailable Godwin, L Angelina RPA Unavailable Unavailable Godwin, L Angelina RPA Unavailable Unavailable Godwin, L Angelina RPA Unavailable Unavailable Godwin, L Angelina RPA Unavailable Unavailable Godwin, L Angelina RPA Unavailable Unavailable Godwin, L Angelina RPA Unavailable Unavailable Godwin, L Angelina RPA Unavailable Unavailable Godwin, L Angelina RPA Unavailable Unavailable Godwin, L Angelina RPA Unavailable Unavailable Godwin, L Angelina RPA Unavailable Unavailable Godwin, L Angelina RPA Unavailable Unavailable Ogdwin, L Angelina RPA Unavailable Unavailable Godwin, L Angelina RPA Unavailable Unavailable Godwin, L Angelina RPA Unavailable Unavailable Godwin, L Angelnia RPA Unavailable Unavailable Godwin, L Angelian RPA Unavailable Unavailable Godwin, L Angelina RPA Unavailable Unavailable Godwin, L Angelina RPA Unavailable Unavailable Godwin, L Angelina RPA Unavailable Unavailable Godwin, L Angelina RPA Unavailable Unavailable Godwin, L Angelina RPA Unavailable Unavailable Godwin, L Angelina RPA Unavailable Unavailable Godwin, L Angelina RPA Unavailable Unavailable Godwin, L Angelina RPA Unavailable Unavailable Godwin, L Angelina RPA Unavailable Unavailable Godwin, L Angelina RPA Unavailable Unavailable Godwin, L Angelina RPA Unavailable Unavailable Godwin, L Angelina RPA Unavailable Unavailable Re-disclosure Warning The records that you are about to access may contain information from federally-assisted alcohol or drug abuse programs. If such information is present, then the following federally mandated warning applies: This information has been disclosed to you from records protected by federal confidentiality rules (42 CFR part 2). The federal rules prohibit you from making any further disclosure of this information unless further disclosure is expressly permitted by the written consent of the person to whom it pertains or as otherwise permitted by 42 CFR part 2. A general authorization for the release of medical or other information is NOT sufficient for this purpose. The Federal rules restrict any use of the information to criminally investigate or prosecute any alcohol or drug abuse patient.The records that you are about to access may contain highly sensitive health information, the redisclosure of which is protected by Article 27-F of the [facility] Public Health law. If you continue you may have access to information: Regarding HIV / AIDS; Provided by facilities licensed or operated by the [facility] of Mental Health; or Provided by the [facility] for People With Developmental Disabilities. If such information is present, then the following [facility] mandated warning applies: This information has been disclosed to you from confidential records which are protected by state law. State law prohibits you from making any further disclosure of this information without the specific written consent of the person to whom it pertains, or as otherwise permitted by law. Any unauthorized further disclosure in violation of state law may result in a fine or nursing home sentence or both. A general authorization for the release of medical or other information is NOT sufficient authorization for further disc losure. Family History Family Member Name Family Member Gender Family Member Status Date o f Status Description Data Source(s) Unknown Male Problem [facility] ([facility]) Unknown Female Problem [facility] ([facility] Unknown Female Problem [facility] Unknown Female Problem [facility] ([facility] ) Encounters Encounter Providers Location Date Indications Data Source(s ) Outpatient Attender: Francisco Long MDReferrer: WES MCKEONC 07/02/2021 08:21:09 PM EDT [facility] Recurring Patient Referrer: EWS MCKEONC 07/01/2021 1 2:45:35 PM EDT [facility] Outpatient Attender: Luan Denney MDReferrer: Luan mckeon MD 06/16/2021 01:16:22 PM EDT [facility] Wes Lopez RPA-C: [address], [place] [address], Ph. Attender: WES MCKEONC [facility] Medical 06/16/2021 12:00:00 AM EDT [facility] ([facility]) Outpatient Attender: Angelina Goldberg/Letha/Ibrahima/Marilynn fernandez 06/09/2021 01:00:00 PM EDT [facility] ([facility]) Wes Lopez RPA-C: [address], [place] [address], Ph. Attender: WES MCKEONC [facility] Medical 05/29/2021 12:00:00 AM EDT [facility] ([facility]) Wes Lopez RPA-C: [address], [place] [address], Ph. Attender: WES MCKEONC [facility] Medical 05/29/2021 12:00:00 AM EDT [facility] ([facility]) Recurring Patient Referrer: WES MCKEONC 05/28/2021 1 1:29:19 AM EDT [facility] Recurring Patient Referrer: WES MCKEONC 05/26/2021 1 2:17:33 PM EDT [facility] Recurring Patient Referrer: WES MCKEONC 05/25/2021 0 2:54:37 PM EDT [facility] Recurring Patient Referrer: WES MCKEONC 05/25/2021 0 9:58:17 AM EDT [facility] Outpatient Attender: Luan Denney MDReferrer: MANSOOR QUINONEZ MD 05/22/2021 07:28:43 AM EDT [facility] Recurring Patient Referrer: WES HERNANDEZ 05/18/2021 0 9:10:11 AM EDT [facility] Recurring Patient Referrer: KEY QUINONEZ MD 08:37:01 AM EDT [facility] Recurring Patient Referrer: KEY QUINONEZ MD 03:58:55 PM EDT [facility] Recurring Patient Referrer: KEY QUINONEZ MD 03:55:58 PM EDT [facility] Outpatient [address] [place] [id number] 12/16/2020 12:00:00 AM EST eCW ([facility]) Outpatient Attender: WES LOPEZ RPA-C [facility] 08/03/2020 12:24:00 PM EDT [facility] Outpatient Attender: WES LOPEZ RPA-C [facility] 08/03/2020 12:23:59 PM EDT [facility] Outpatient Attender: WES MCKEONC [facility] 08/03/2020 12:23:01 PM EDT [facility] Outpatient Attender: WES LOPEZ RPA-C [facility] 08/03/2020 12:23:00 PM EDT [facility] Outpatient Attender: WES LOPEZ RPA-C [facility] 07/30/2020 12:16:01 PM EDT [facility] Outpatient Attender: [facility] [facility] 07/30/2020 09:16:01 AM EDT [facility] Outpatient Attender: WES LOPEZ RPA-C [facility] 07/30/2020 09:16:01 AM EDT [facility] Outpatient Attender: Danitza barrera 07/29/2020 11:50:00 AM EDT [facility] ([facility]) Outpatient Attender: WES LOPEZ RPA-C [facility] 07/17/2020 09:18:00 AM EDT [facility] Outpatient Attender: WES CHARY RPA-C [facility] 07/17/2020 08:52:02 AM EDT [facility] Outpatient Attender: WES LOPEZ RPA-C [facility] 07/17/2020 08:52:02 AM EDT [facility] Outpatient Attender: WES LOPEZ RPA-C [facility] 07/09/2020 10:52:01 AM EDT [facility] Outpatient Attender: WES CHARY RPA-C [facility] 06/20/2020 01:59:01 PM EDT [facility] Immunizations Vaccine Date Status Description Data Source(s) Tdap 05/29/2021 10:17:00 AM EDT completed 05/29/2021 0.5 mL [facility] ([facility]) Tdap 05/29/2021 10:17:00 AM EDT completed 05/29/2021 0.5 mL [facility] ([facility]) COVID-19, mRNA, LNP-S, PF, 100 mcg/0.5 mL dose 12/26/2020 12 :00:00 AM EST completed 12/26/2020 [facility] ([facility]) COVID-19, mRNA, LNP-S, PF, 100 mcg/0.5 mL dose 12/26/2020 12 :00:00 AM EST completed 12/26/2020 [facility] ([facility]) COVID-19, mRNA, LNP-S, PF, 100 mcg/0.5 mL dose 11/28/2020 12 :00:00 AM EST completed 11/28/2020 [facility] ([facility]) COVID-19, mRNA, LNP-S, PF, 100 mcg/0.5 mL dose 11/28/2020 12 :00:00 AM EST completed 11/28/2020 [facility] ([facility]) New in 2011. IIV4 07/17/2020 12:00:00 AM EDT completed 0.5 mL [facility]) New in 2011. IIV4 07/17/2020 12:00:00 AM EDT completed 0.5 mL [facility] ([facility]) Medications Medication Brand Name Start Date Product Form Dose Route Admi nistrative Instructions Pharmacy Instructions Status Indications Reaction Description Data Source(s) SUPREP BOWEL PREP KIT 17.5-3.13-1.6 gram SODIUM, POTASSIUM,M AG SULFATES 08/06/2021 12:00:00 AM EDT recon soln 354 USE DIRECTED USE DIRECTED SOLD: 08/11/2021 [facility] 100 mg 07/01/2021 12:00:00 AM EDT tablet 90 TAKE ONE TABLET BY MOUTH EVERY DAY TAKE ONE TABLET BY MOUTH EVERY DAY SOLD: 07/03/2021 [facility] atorvastatin 10 MG Oral Tablet ATORVASTATIN CALCIUM 06/24/2021 1 2:00:00 AM EDT tablet 90 TAKE ONE TABLET BY MOUTH EVERY D AY TAKE ONE TABLET BY MOUTH EVERY DAY SOLD: 07/01/2021 [facility] meloxicam 7.5 MG Oral Tablet MELOXICAM 05/21/2021 12:00:00 AM EDT tabl et 60 TAKE ONE TABLET BY MOUTH TWICE A DAY WITH FOOD TAKE ONE TABLET BY MOUTH TWICE A DAY WITH FOOD SOLD: 05/25/2021 [facility] doxycycline hyclate 100 MG Oral Capsule Doxycycline Hyclate 07/29/2020 12:00:00 AM EDT active [facility] ([facility]) doxycycline hyclate 100 MG Oral Tablet DOXYCYCLINE HYCLATE 1 12:00:00 AM EDT tablet 28 TAKE ONE TABLET BY MOUTH TWI CE A DAY FOR 14 DAYS TAKE ONE TABLET BY MOUTH TWICE A DAY FOR 14 DAYS SOLD: 07/19/2020 [facility] 100 mg 06/23/2020 12:00:00 AM EDT tablet 90 TAKE ONE TABLET BY MOUTH EVERY DAY TAKE ONE TABLET BY MOUTH EVERY DAY SOLD: 03/17/2021 [facility] 100 mg 06/23/2020 12:00:00 AM EDT tablet 90 TAKE ONE TABLET BY MOUTH EVERY DAY TAKE ONE TABLET BY MOUTH EVERY DAY SOLD: 06/26/2020 [facility] 100 mg 06/23/2020 12:00:00 AM EDT tablet 90 TAKE ONE TABLET BY MOUTH EVERY DAY TAKE ONE TABLET BY MOUTH EVERY DAY SOLD: 12/09/2020 [facility] 100 mg 06/23/2020 12:00:00 AM EDT tablet 90 TAKE ONE TABLET BY MOUTH EVERY DAY TAKE ONE TABLET BY MOUTH EVERY DAY SOLD: 09/10/2020 [facility] atorvastatin 10 MG Oral Tablet ATORVASTATIN CALCIUM 05/28/2020 1 2:00:00 AM EDT tablet 90 TAKE ONE TABLET BY MOUTH EVERY D AY TAKE ONE TABLET BY MOUTH EVERY DAY SOLD: 12/09/2020 [facility] atorvastatin 10 MG Oral Tablet ATORVASTATIN CALCIUM 05/28/2020 1 2:00:00 AM EDT tablet 90 TAKE ONE TABLET BY MOUTH EVERY D AY TAKE ONE TABLET BY MOUTH EVERY DAY SOLD: 03/17/2021 [facility] atorvastatin 10 MG Oral Tablet ATORVASTATIN CALCIUM 05/28/2020 1 2:00:00 AM EDT tablet 90 TAKE ONE TABLET BY MOUTH EVERY D AY TAKE ONE TABLET BY MOUTH EVERY DAY SOLD: 09/10/2020 [facility] Insurance Providers Payer name Policy type / Coverage type Policy ID Covered green party ID Covered green party's relationship to whelan Policy Whelan Plan Information [facility] Part B [id number] Self [id number] [facility] Part B [id number] Self [id number] [facility] Part B [id number] Self [id number] [facility] Part B [id number] Self [id number] [facility] Part B [id number] Self [id number] [facility] Part B [id number] Self [id number] Workers Compensation Workers Compensation [id number] Self [id number] [facility] Workers Compensation [id number] Self [id number] [facility] Workers Compensation [id number] Self [id number] [facility]) Workers Compensation [id number] Self [id number] [facility] Workers Compensation [id number] Self [id number] [facility] Workers Compensation [id number] Self [id number] [facility] Workers Compensation [id number] Self [id number] [place] P [id number] S [id number] [place] P [id number] S [id number] 7 [facility] Workers Compensation [id number] Self Emp/[employer] [id number] Self Emp/[employer] Self State Ins [facility]) Workers Compensation [id number] Self [facility] Ins [facility]) Workers Compensation [id number] Self State Ins [facility]) Workers Compensation [id number] Self [facility]) Workers Compensation [id number] Self EMPIRE (STATE EMP) P [id number] S [id number] BCBS EMPIRE ROWENA DIV [id number] SP [id number] UNITED [employer]ARE [id number] SP [id number] UNITED HEALTHCARE [id number] SP [id number] STATE INSURANCE FUND [id number] SP [id number] [facility] DEPT OF CORRECTIONS [id number] SP [id number] SELF PAY ONLY [id number] SP [id number] UNITED HEALTHCARE O [id number] S [id number] STATE INSURANCE FUND O [id number] S [id number] [facility] DIV [id number] SP [id number] O UNAVAILABLE UNAVAILA BLE [facility] Ins [facility] () Workers Compensation [id number] Self [id number] Emp/[employer] [id number] Self [id number] [facility] () Workers Compensation [id number] Self [id number] Emp/[employer] [id number] Self [id number] Problems, Conditions, and Diagnoses Code Display Name Description Problem Type Effective Dates Data Source(s) 319947905436930 Pain in right knee Pain in Right Knee Problem 05/29/2021 12:00:00 AM EDT [facility] ([facility]) 870790708666199 Pain in right knee Pain in Right Knee Problem 05/29/2021 12:00:00 AM EDT [facility] ([facility]) 789.02 Left upper quadrant pain Left upper quadrant pain 07/30/2020 12:15:44 PM EDT [facility] V01.79 Contact with and (suspected) exposure to other viral communicable diseases Contact with and (suspected) exposure to other viral communicable diseases 07/30/2020 12:15:44 PM EDT [facility] 780.79 Fatigue Fatigue 07/30/2020 12:15:44 PM ED T [facility] 285456821 Finding of general energy Finding of General Energy Pr oblem 07/30/2020 12:00:00 AM EDT [facility] ([facility]) 428289454 Exposure to communicable disease Exposure to Com municable Disease Problem 07/30/2020 12:00:00 AM EDT - 05/29/2021 12:00:00 AM ED T [facility] ([facility]) 153228679 Left upper quadrant pain Left Upper Quadrant Pain Prob anshu 07/30/2020 12:00:00 AM EDT - 05/29/2021 12:00:00 AM EDT [facility] ([facility]) 435109654 Finding of general energy Finding of General Energy Pr oblem 07/30/2020 12:00:00 AM EDT [facility] ([facility]) 133026693 Exposure to communicable disease Exposure to Com municable Disease Problem 07/30/2020 12:00:00 AM EDT - 05/29/2021 12:00:00 AM ED T [facility] ([facility]) 399437826 Left upper quadrant pain Left Upper Quadrant Pain Prob anshu 07/30/2020 12:00:00 AM EDT - 05/29/2021 12:00:00 AM EDT [facility] ([facility]) V05.9 Encounter for immunization Encounter for immunization 07/17/2020 09:17:20 AM EDT [facility] R73.01 Impaired fasting glucose Impaired fasting glycemia 07/17/2020 09:17:20 AM EDT [facility] 31007112 Lyme disease, unspecified Lyme disease, unspecified 07/17/2020 09:17:20 AM EDT [facility] V65.8 Person consulting for explanation of exa mination or test findings Person consulting for explanation of examination or test findings 07/17/2020 09:17:20 AM EDT [facility] 532966292 Patient asked to attend Patient Asked to Attend Proble 07/17/2020 12:00:00 AM EDT - 05/29/2021 12:00:00 AM EDT [facility] ([facility]) [id number] Influenza vaccine needed Influenza Vaccine Needed Pro blem 07/17/2020 12:00:00 AM EDT - 05/29/2021 12:00:00 AM EDT [facility] ([facility]) 962048569 Impaired fasting glycemia Impaired Fasting Glycemia Pr oblem 07/17/2020 12:00:00 AM EDT [facility] ([facility]) 29961245 Lyme disease Lyme Disease Problem 07/17/2020 12:0 0:00 AM EDT - 05/29/2021 12:00:00 AM EDT [facility] ([facility]) 658901629 Patient asked to attend Patient Asked to Attend Proble 07/17/2020 12:00:00 AM EDT - 05/29/2021 12:00:00 AM EDT [facility] ([facility]) [id number] Influenza vaccine needed Influenza Vaccine Needed Pro blem 07/17/2020 12:00:00 AM EDT - 05/29/2021 12:00:00 AM EDT [facility] ([facility]) 732510938 Impaired fasting glycemia Impaired Fasting Glycemia Pr oblem 07/17/2020 12:00:00 AM EDT [facility] ([facility]) 81289666 Lyme disease Lyme Disease Problem 07/17/2020 12:0 0:00 AM EDT - 05/29/2021 12:00:00 AM EDT [facility] ([facility]) 385089241 SNOMED CT Concept SNOMED CT Concept Problem 06/05 12:00:00 AM EDT - 05/29/2021 12:00:00 AM EDT [facility] ([facility]) 465299841 Endocrine/metabolic screening Endocrine/metabolic Scre ening Problem 06/05/2019 12:00:00 AM EDT - 05/29/2021 12:00:00 AM EDT [facility] ([facility]) 936955973 SNOMED CT Concept SNOMED CT Concept Problem 06/05 12:00:00 AM EDT - 05/29/2021 12:00:00 AM EDT [facility] ([facility]) 896541420 Endocrine/metabolic screening Endocrine/metabolic Scre ening Problem 06/05/2019 12:00:00 AM EDT - 05/29/2021 12:00:00 AM EDT [facility] ([facility]) Surgeries/Procedures Procedure Description Date Indications Data Source(s) OFFICE OUTPATIENT NEW 30 MINUTES 06/09/2021 12:00:00 A M EDT [facility] ([facility] ) Results ID Date Data Source [id number] 08/14/2021 09:35:00 AM EDT [facility] Name Value Range Interpretation Code Description Data Dariana rce(s) Supporting Document(s) SARS-CoV-2 (COVID-19) RNA [Presence] in Respiratory specimen by LAURA with probe detection Not Detected [facility] This lab was ordered by [facility] and reported by [facility]. ID Date Data Source [id number] 07/02/2021 08:21:09 PM EDT [facility]: Virginia SoriaDOB: 1975Provider: Kevin Long: 07/01/2021 Reason For VisitSOS Patient Intake: Virginia Soria is here today for Right Knee. Patient is seen at the request of . Virginia had his second Covid vaccine on 12/26/20. Virginia Soria is a new patient. Patient states he has medial Right knee pain after a work injury. He notes he is attending PT with some relief. W.C. DOI: 05/11/21. Patient states he slipped down a bus step while at work and twisted his knee. The patient has had a course of physical therapy for greater than 4 weeks. The patient has had a course of NSAIDs for greater than 4 weeks. NSAID Name: Meloxicam. The patient was notified that the office visit was recorded to enhance documentation accuracy. 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 History of Present IllnessCHIEF COMPLAINTRight knee pain.HISTORY OF PRESENT ILLNESSMr. Soria is a 46-year-old male who presents for a 2nd opinion evaluation of his right knee. This is a workers' compensation evaluation. He has been evaluated by Dr. Denney. The patient reports that he injured his right knee when he fell approximately 2 months ago. He describes he was getting out of his post on his bus, his foot slipped out of the foot socket, and fell approximately 3-4 feet to the ground. He denies any previous right knee issues. The patient describes nagging pain in the medial aspect of his knee. He denies numbness and tingling. The patient states that he has attended physical therapy. He was prescribed an o ral anti-inflammatory, which he took in the beginning, but is not taking much anymore. He notes that he applies ice to his knee.The patient denies a significant medical history including diabetes, pulmonary, or cardiovascular issues. He states that he takes medication for hypertension.He states that he is employed by the [employer]. The patient notes that he is currently working full duty. Results/Data OtherX-rays of the right knee previously taken on 05/18/2021 were reviewed in the office today. These are essentially unremarkable in terms of any major degenerative disease, any frac ture, or acute abnormality.MRI of the right knee previously obtained on 06/12/2021 was reviewed in the office today. I reviewed and interpreted the images and the report. This demonstrates linear signal in the posterior horn medial meniscus, mostly of which is intrasubstance, but does near the root reach the undersurface consistent with a medial meniscus tear. There is a small effusion. ACL and PCL are intact. Again, minimal degenerative disease is present. AssessmentASSESSMENTRight knee traumatic posterior horn medial meniscus tear, acute.Melanie patient presents with right knee pain that began w hen he fell. I reviewed with the patient his exam, x-ray, and MRI findings which reveal acute right knee traumatic posterior horn medial meniscus tear. We discussed his diagnosis as well as treatment options in detail today. Treatment is dependent upon the amount of pain the patient is experiencing and how aggressive they would like to be. Option #1 is benign neglect. I advised him that meniscus tears do not heal on their own, but sometimes they do not cause significant symptoms. If his symptoms are tolerable, he does not have to do anything. Option #2 is conservative treatment with symptom management, including oral medicine, physical therapy, and cortisone injection. Option #3 is surgical intervention with a right knee arthroscopy with partial medial meniscectomy to trim out the torn part of his meniscus. We discussed the surgical procedure and postoperative course in detail today, including crutches, physical therapy, and total healing time of a few weeks. Pertinent risks and benefits of surgery were discussed in detail. Specific risks including infection, bleeding, neurovascular injury, deep vein thrombosis, wound / healing complications, and anesthetic complications, including , were fully discussed. We discussed the possibility that various aspects of the surgical procedure could fail to heal, and that additional surgery could then be required. We also thoroughly reviewed the typical postoperative restrictions and rehabilitation requirements for this type of surgery, and how those requirements could change depending on other intra-operative findings, and depending on individual speed of post-operative healing. I explained how failure to follow post-operative instructions could result in failure of the surgery. The patient was given the opportunity to ask questions, and appeared to be satisfied with my responses. Patient expressed good understanding of the surgical procedure, and of the alternative treatment options I presented.He has been treating conservatively without relief and would like to move forward with a right knee arthroscopy with partial medial meniscectomy. He is a good candidate for arthroscopic intervention. I gave him my card so he can contact me with questions. We will request approval from workers' compensation, and contact him to schedule the surgery. All questions were answered. The patient understands and agrees with this plan.Work status is 0% disability, no restrictions. Work / School NoteThe incident described by the patient is a competent medical cause of this injury. The patient's complaints are consistent with the history of the injury/illness. The patient's history of the injury/illness is consistent with my objective findings. The percentage of temporary impairment is 0%. The patient is working at this time. Scribed by Allison Kaba on 07/01/2021 at 06:13 PM for Francisco Long Signatures Electronically signed by : Allison Kaba MA; Jul 01 2021 6:14PM EST (Author) Electronically signed by : Francisco Long M.D.; Jul 02 2021 8:21PM EST Name Value Range Interpretation Code Description Data Dariana rce(s) Supporting Document(s) ID Date Data Source [id number] 06/16/2021 01:16:22 PM EDT [facility] Sams: 1975Provider: Devin Denney: 06/15/2021 Reason For VisitWilliam Soria is here today for right knee. Patient denies any symptoms of or pending results for COVID 19 or contact with anyone with COVID 19. Virginia had his second Covid vaccine on 12/26/20. Virginia Soria is here for evaluation of MRI results. Patricia DOI: 05/11/21. 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 History of Present IllnessThilj is a 46-year-old male with a Workers' Compensation injury of 05/11/21. He sustained a injury to his right knee while on a ladder getting out the back of a bus. He sustained a twisting injury, discomfort was noted to be present. He was seen and evaluated by me on 05/18/21 and there was concern over a medial collateral ligament strain as well as posterior third medial meniscus tear. MR was performed and he is seen in follow-up. He is a hypertensive and is on medication. He was seen by his primary care physician after being seen by me on 05/18/21 and she decreased his Mobic from 7.5 mg b.i.d. to just once daily due to his hypertension. He presents today with pain and discomfort along the medial aspect of his knee, especially certain squatting, bent knee or pivoting activities are problematic. No history of any prior complaints in reference to his knee. He is seen today for further evaluation. He has intermittent catching sensations. No true locking is noted to be present. No prior history of any complaints in reference to his knee prior to 05/11/21. Results/Data MRIMRI of the right knee performed at [facility] 06/12/21 reveals posterior third peripheral oblique linear tear with extension of the undersurface of the meniscus, small joint effusion. No ligamentous laxity is noted to be present. No ligamentous injury has occurred. AssessmentRight knee posterior third oblique undersurface peripheral medial meniscus tear, traumatic. Plan Physical Therapy (SOS) - General Treatment Treatment Status: Complete Done:15Jun2021 Ordered;For: Right knee pain; Ordered By: Luan Denney Performed: Due: 29Jun2021; Last Updated By: Roxana Alfaro; 06/15/2021 9:46:56 AMPT Protocol : Evaluate and treat as indicated, per protocol or as previously written.Duration: : Four WeeksPT Frequency : Two or three times a weekLaterality and Body Part: : Right Knee MMT At this stage, in reference to the right knee, I would like to place him in formalized physical therapy for his right knee. He will continue with his Mobic once daily 7.5 mg, secondary to his hypertension. I would like him to be seen by Dr. Francisco Long as it is on the peripheral edge. The question is whether or not a repair of this is indicated Even though he is 46 years of age, he was totally asymptomatic before this. He does have a traumatic tear of the posterior third of his meniscus. He is given a copy of his MRI re port. This is under Workers' Compensation, date of injury is 05/11/21. He is working full duty. He does not desire to be out of work at this stage. He has a 0% disability. With this, I would appreciate his opinion in reference to this. If surgery is indicated, I would like Dr. Long to be involved with that in case it actually requires a repair. Work / School NoteThe incident described by the patient is a competent medical cause of this injury. The patient's complaints a re consistent with the history of the injury/illness. The patient's history of the injury/illness is consistent with my objective findings. The percentage of temporary impairment is 0%. The patient is working at this time. Signatures Electronically signed by : Lenora Mcneil, ; Jun 15 2021 1:23PM EST Electronically signed by : Luan Denney M.D.; Jun 16 2021 1:16PM EST Name Value Range Interpretation Code Description Data Dariana rce(s) Supporting Document(s) ID Date Data Source [id number] 06/13/2021 07:21:00 AM EDT [facility] PATIENT MR#: [id number] NAME: Mehdi Virginia martinez DATE OF : 1975REFERRING PHYSICIAN: Luan Glass DATE: 1EXAM: MRI right KneeINDICATION: Medial knee pain following twisting injuryCOMPARISON: Right knee series obtained on May 18, 2021TECHNIQUE: MRI scan of the right knee was performed on a 1.5T GE Scanner usingvarious scan planes and pulse sequences.FINDINGS: The posterior articular cartilage of the patella is normal inappearance. There are no findings of a posterior James's cyst. There is noabnormal hyperintense T2 intraparenchymal signal within the muscles of thedistal thigh or proximal calf to imply the presence of edema from a strain. Thearticular cartilage along the weightbearing margins of the medial and lateralcompartments are normal in appearance. There is a small focal region ofhyperintense T2 marrow signal with in the central aspect of the medial tibialplateau subjacent to the root of the posterior horn of the medial meniscus.. There is an oblique linear tear within the peripheral aspect of the posteriorhorn of the medial meniscus which communicates which extends to the dorsalaspect. There are no findings of a lateral meniscus, cruciate or collateralligament tear. There is a small joint effusion extending into the suprapatellarbursa. The extensor mechanism is intact.IMPRESSION:1. There is an oblique linear tear within the peripheral aspect of theposterior horn of the medial meniscus.2. There is a small joint effusion.Read by: González SeeTranscribed by: González SeeTranscribed Date: 06/13/2021 7:21:59 AMElectronically signed by: González SeeDabeba signed: 06/13/2021 7:23:00 AM Name Value Range Interpretation Code Description Data Dariana rce(s) Supporting Document(s) ID Date Data Source [id number] 05/22/2021 07:28:43 AM EDT [facility]Name: Virginia KahnLeahB: 1975Provider: Devin Denney: 05/18/2021 Reason For VisitSOS Patient Intake: Virginia Soria is here today for right knee. Patient denies any symptoms of or pending results for COVID 19 or contact with anyone with COVID 19. [place] had his second Covid vaccine on 12/26/20. Virginia Soria is a new patient. Patient states he fell after missing a step. He states he has used ice with little relief. W.C. DOI: 05/11/21. Patient states the injury occurred while at work. 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 History of Present IllnessThis 46-year-old male had a Worker's Compensation injury on 05/11/21.He was working and was on a ladder while getting out of the back of a bus. He slipped, twisted and fell on the ground, injuring his right knee. He had acute pain and discomfort, which got worse the next day. At that time he noticed swelling and discomfort in his knee. He has pain and discomfort primarily along the medial aspect of his knee, especially with weightbearing. His symptomatology has not significantly improved. Pivoting and twisting activities are problematic. He notes intermittent catching sensations and has persistent swelling in the knee. No prior history of injury. He is hypertensive, for which he takes medication. He is here for further evaluation of his right knee. He continues to work. Results/DataX-rays: Standing AP, lateral and sunrise of the right knee, as well as PA flexed of the right and left knees, were ordered, taken and interpreted by me today. Right knee reveals no evidence of degenerative arthritis of medial or lateral compartments. No evidence of patellofemoral degenerative arthritis. No fracture visualized. No calcification appreciated. PA flexed view of left knee reveals no evidence of degenerative change of medial or lateral compartments. AssessmentRight knee grade 1-2 strain of medial collateral ligament, probable traumatic posterior 1/3 medial meniscus tear. Questionable anterior cruciate ligament tear. Plan LE Economy Hinged Knee Brace (SOS) [id number]; Status:Complete; Done: 18May2021 Perform:SOS28; Due:01Jun2021; Last Updated By:Savage Jain; 05/18/2021 10:13:10 AM;Ordered; For:Right knee pain; Ordered By:Luan Denney;[facility] Size 1 (S,M,L) : 04: Large X-Ray I Knee - 4+ views (XRays were ordered, obtained and interpreted today in theoffice. Indication: pain/dysfunction.); Status:Complete; Done: 18May2021 Perform:SOS28; Due:01Jun2021; Last Updated By:Dunia Mirza; 05/18/2021 9:33:37 AM;Ordered; For:Right knee pain; Ordered By:Luan Denney;Weight Bearing Status : Weight bearingLaterality: : Right MRI (SOS) Referral Diagnostic Diagnostic Status: Need Information - FinancialAuthorization Requested for: [id number] Ordered;For: Right knee pain; Ordered By: Luan Denney Performed: Due: [id number]; Last Updated By: Marycarmen Gilmore; 05/18/2021 10:02:57 AMReason: : MCL/MMT/ACLPatient will follow up with: : Dr. DenneyMRI Ordered Contrast : 01: without gadoLaterality: : Right Econoline brace. Mobic 7.5 mg b.i.d. He is hypertensive, on medication, so we will contact his primary care provider to see if Mobic is appropriate.An MRI of his right knee is indicated for further evaluation of his medial collateral ligament and, primarily, his anterior cruciate ligament, to be certain there is not a partial- thickness tear, which may change his treatment.We will hold physical therapy at this stage. Follow-up post MRI. He is working full-duty and he desires to continue this. He is comfortable with the plan. The role of anti-inflammatories in the management of the patient's problem was discussed. No contraindications were noted. Their mechanism for action and side effects, especially GI upset, rare cases of ulceration, elevation of LFTs, renal dysfunction and possible drug interactions were outlined. The patient is advised to discontinue the drug for any untoward side effects and call the office. The patient understands that there are a whole variety of anti-inflammatories with individualized effects and effectiveness. Hydration is encouraged. Work / School NoteThe incident described by the patient is a competent medical cause of this injury. The patient's complaints are consistent with the history of the injury/illness. The patient's history of the injury/illness is consistent with my objective findings. The percentage of temporary impairment is 0%. The patient is working at this time. Signatures Electronically signed by : Madina Shiedls, ; May 18 2021 1:11PM EST Electronically signed by : Laun Denney M.D.; May 22 2021 7:28AM EST Name Value Range Interpretation Code Description Data Dariana rce(s) Supporting Document(s) ID Date Data Source [id number] 01/06/2021 12:00:00 AM EDT [facility] Name Value Range Interpretation Code Description Data Draiana rce(s) Supporting Document(s) SARS-CoV-2 (COVID-19) RNA [Presence] in Respiratory specimen by ALURA with probe detection Not Detected [facility] This lab was ordered by [facility] and reported by No [facility]. ID Date Data Source [id number] 07/30/2020 12:38:00 PM EDT [facility] Name Value Range Interpretation Code Description Data Dariana rce(s) Supporting Document(s) HCT 48.3 % 42.0-52.0 [facility] HGB 16.8 g/dL 13.5-17.5 [facility] MCH 34.8 G/DL pg 32.0-36.5 N [facility] MCHC 30.4 PG % 27.0-33.0 [facility] PLATELETS 293 10 10*3/mm3 150-450 [facility] RBC 5.53 10 10*6/mm3 4.30-6.10 N [facility] RDW 12.3 % 11.5-14.5 N [facility] WBC TOTAL 9.0 4.0-10.0 N [facility] ID Date Data Source [id number] 07/30/2020 12:10:00 PM EDT [facility] Name Value Range Interpretation Code Description Data Dariana rce(s) Supporting Document(s) SARS-COV-2 RNA RESP QL LAURA+PROBE [facility] This lab was ordered by [facility] and reported by Nautit KILLEEN. ID Date Data Source [id number] 07/30/2020 11:31:41 AM EDT [facility] Measurements & CalculationsHeight: 71 inches (5 ft. 11 in.) 180.34 cm Weight: 230.8 pounds 104.91 kg Body Mass Index (BMI): 32.31BMI Interpretation: ObeseBody Surface Area (BSA): 2.24Weight Management Education Done (Nutrition/Physical Activity)Vital SignsTemperature: 98.3F 36.83C tympanic Pulse Rate: 77 beats/minuteRespiratory Rate: 18 respirations/minuteBlood Pressure: 133/84 left arm sitting automaticO2 Saturation: 98% Vital Signs performed by: Brianna Ruff LPN, July 30, 2020 11:36 AMMultiple Vital SignsInitial BP: 144/95Vitals #2BP: 133/84 (primary)Performed by: Wes FERRELL, July 30, 2020 12:14 PMComments: Demarco Ruff LPNInitial Intake Information From: patientRoom #: 1Infectious Disease / Travel ScreeningRecent travel for you or any close contacts? NoHave you had any close contact with anyone diagnosed with or under investigation for COVID-19 (cor onavirus)? NoFever? NoRespiratory symptoms: cough, cold, congestion, shortness of breath, difficulty breathing? NoLoss of smell? NoLoss of taste? NoSmoking, Tobacco, Vaping or Smoke Exposure StatusSmoke Status: never smokerTobacco Use: NoDo you vape? NoPassive Smoke Exposure: NoHealthcare HistorySince your last office visit...Have you been admitted to the hospital? NoHave you been to an emergency room (ER) or urgent care clinic? Yes - Er f/uEmergency room (ER) or urgent care date reported today: 07/29/2020Have you seen another healthcare provider? NoHave you seen a dentist? YesIntake performed by: Brianna Ruff LPN, July 30, 2020 11:34 AMRate Your HealthIn general, would you say your health is? GoodPain AssessmentAre you currently having any pain which... You would like your provider to address? Yes Affects your activity level? YesDepression Screening - PHQ-2Over the last two weeks, have you... Had little interest or pleasure in doing things? Not at all Been feeling down, depressed, or hopeless? Not at all PHQ-2 Score: 0Anxiety Screening - NERY-2Over the last two weeks, have you been... Feeling nervous, anxious, or on edge? Not at all Unable to stop or control worrying? Not at all NERY-2 Score: 0Food InsecurityWithin the past year...Did you worry whether your food would run out before you got money to buy more? Never trueWas there a time when the food you bought didn't last and you didn't have money to get more? Never truePain AssessmentLocation: left sideDuration: 4-7 daysFrequency: DailyCharacter/Quality: achingScreening, Brief Intervention, & Referral to Treatment (SBIRT)Pre-Screening Questions How many times have you have 5 or more drinks in a day? 0How many times have you used an illegal drug or used a prescription medication for a non-medical reason? 0Performed by: Brianna Ruff LPN, July 30, 2020 11:35 AMPatient History Medical History:Hypertensionlyme diseaseheart valve issuesSurgical History:wisdom teethFamily History:Heart disease (Maternal Grandfather)Social/Personal History: Chief Complaintfollow-up visitHistory of Present Illness (HPI)45 yo male presents for [facility] ER follow-up. States he woke up on Tuesday07/27/2020 with left groin/hip cramp and feeling "loopy". States he had black spots in his vision throughout the day, but that improved Tuesday and resolved by yesterday but present again today. The pain however slowly worsened. Denies diarrhea, vomiting, constipation, bloody stool, groin swelling. Had unremarkable labs and CT abdomen/pelvis. Denies fever, chills, night sweats.Pt requests a COVID19 testing, states that he cares for his terminally ill father. Pt is concerned because he simply feels ill. Transitions of Care InboundProblem ReviewProblem List was reviewed and/or updated during this visit.Medication Reconciliation & ReviewMedication List was reviewed and/or updated during this visit, including review of any cepd-qwu-odltcms medications, herbal therapies, and/or supplements.Allergy ReviewAllergy List was reviewed and/or updated during this visit.Adult Preventive CareLabs/Meds/Other Counseling-Nutrition and Physical Activity:BMI Interpretation: Obese (07/30/2020) Counseling: Done (07/30/2020) Physical Activity: Done (07/30/2020)Review of Systems General: Complains of see HPI, dizziness, fatigue, headache, feeling ill. Denies loss of appetite, chills, fever, sweats. Eyes: Complains of see HPI. Denies blurring of vision, double vision, discharge, vision loss, eye pain, eye swelling, sensitivity to light, redness. Ears/Nose/Throat: Denies earache, ringing in ears, decreased hearing, nasal congestion, sore throat, swollen glands. Cardiovascular: Complains of feeling faint. Denies chest pain, palpitations, peripheral edema. Respiratory: Denies cough, difficulty breathing, shortness of breath, wheezing. Gastrointestinal: Complains of see HPI, pain or discomfort. Denies nausea, vomiting, constipation, blood in stool, black or tarry stools, heartburn. Genitourinary: Complains of see HPI. Denies pain with urination, burning with urination, urinary hesitancy, urinary urgency, blood in urine. denies inguinal swellingSkin: Denies rash, redness, suspicious lesions. Neurologic: Complains of see HPI, feeling faint. Denies weakness, numbness/tingling, seizures, slurred speech. Physical ExamGeneral Appearance: well nourished, well hydrated, no acute distressEyes, External: conjunctivae and lids normal, EOMIExternal Ears: normal, no lesions or deformitiesHearing: grossly intactRespiratory, Auscultation: clear to auscultation bilaterally; no rales, rhonchi, or wheezesRespiratory, Effort: no intercostal retractions or use of accessory musclesCardiovascular, Auscultation: S1, S2 audible; no murmur, rub, or gallop; RRRPeripheral Circulation: no clubbing, cyanosis, edema, or va ricositiesAbdomen: soft, LUQ/LLQ pain to palpation, no masses or palpable splenomegaly, bowel sounds normalGait & Station: normalSkin, Inspection: no rashes, lesions, or ulcerationsOrientation: oriented to time, place, and personMood & Affect: mildly anxious appearingJudgment & Insight: intactCare Management Plan Transitions of CareInboundRate Your HealthIn general, would you say your health is? GoodAssessment & Plan Problems:Added: Fatigue (ICD-780.79) (TAX24-Y41.83) Assessment: Instructions: Differential diagnoses: lyme disease (known), possibile mono or COVID. Testing collecting today for both. Quarantine until we call you with test results.Contact with and (suspected) exposure to other viral communicable diseases (ICD-V01.79) (ETF80-U48.828) Assessment: Instructions: As above.Left upper quadrant pain (ICD-789.02) (ZLV89-U76.12) Assessment: Instructions: As above. ER if symptoms drastically worsen. Otherwise rest.Assessed:Lyme disease, unspecified (FDI75-Y6 9.20) Assessment: Instructions: Continue current antibiotics to completion.Patient Instructions/Care Plan: Fatigue: Differential diagnoses: lyme disease (known), possibile mono or COVID. Testing collecting today for both. Quarantine until we call you with test results.Contact with and (suspected) exposure to other viral communicable diseases: As above.Left upper quadrant pain: As above. ER if symptoms drastically worsen. Otherwise rest.Lyme disease- unspecified: Continue current antibiotics to completion. Plan developed in collaboration with patient and/or familyMedications:DOXYCYCLINE HYCLATE 100 MG ORAL TABLETACIDOPHILUS ORAL TABLET CHEWABLEATORVASTATIN CALCIUM 10 MG ORAL TABLETALBUTEROL SULFATE HFA 108 (90 BASE) MCG/ACT INHALATION AEROSOL SOLUTIONLOSARTAN POTASSIUM 100 MG ORAL TABLETAllergies:* CATS (Critical)Orders:CBC W/DIFF [CPT-64039] [place] [CPT-72633] COVID-19 Testing [CPT-COVID] Adult - Ofc Vst, EST, Level IV [CPT-49923] 56235 - Venipuncture [CPT-01209] Specimen Handling [CPT-36460] Follow-Up Return to clinic: as needed Clinical Visit Summary CompletedLabs In-House Lab TestsDate/Time Collected: July 30, 2020 12:10 PMDate/Time Received: July 30, 2020 12:10 PMComments: COVID-19 testing done in office taken from the right nostril without difficulty. Patient tolerated it well. Araceli Lemon MA, July 30, 2020 1:21 PMBlood TestsDate/Time Collected: July 30, 2020 12:38 PMDate/Time Received: July 30, 2020 12:38 PMTest Result Reference Range Normal ValueComments: Labs done in office taken from the left hand without difficulty. Patient tolerated it well. Araceli Lemon MA, July 30, 2020 1:16 PM Name Value Range Interpretation Code Description Data Dariana rce(s) Supporting Document(s) ID Date Data Source [id number] 07/29/2020 03:48:00 PM EDT [facility] Name Value Range Interpretation Code Description Data Dariana rce(s) Supporting Document(s) BG FASTING 125 mg/dL 70-100 H [facility] ID Date Data Source [id number] 07/17/2020 08:50:33 AM EDT [facility] Measurements & CalculationsHeight: 71 inches (5 ft. 11 in.) 180.34 cm Weight: 230 pounds 104.55 kg Body Mass Index (BMI): 32.19BMI Interpretation: ObeseBody Surface Area (BSA): 2.24Weight Management Education Done (Nutrition/Physical Activity)Vital SignsTemperature: 97.2F 36.22C tympanic Pulse Rate: 94 beats/minuteRespiratory Rate: 18 respirations/minuteBlood Pressure: 136/87 left arm sitting automaticO2 Saturation: 97% Vital Signs performed by: Brianna Ruff LPN, July 17, 2020 8:50 AMAdult Questionnaire1) Does the patient have a long-term health problem with heart disease, lung disease, asthma, kidney disease, metabolic disease (e.g., diabetes), anemia, or other blood disorder? No2) Does the patient have allergies to medications, food, a vaccine component, or latex? No3) Does the patient have cancer, leukemia, AIDS, or any other immune system problem? No4) Does the patient live with or expect to have close contact with a person whose immune system is severely compromised and who must be in protective isolation (e.g., an isolation room of a bone marrow transplant unit)? No5) Does the patient take cortisone, prednisone, other steroids, or anticancer drugs, or has the patient had radiation treatments? No6) During the past year, has the patient received a transfusion of blood or blood products, or been given immune (gamma) globulin or an antiviral drug? No7) For women: Is the patient or is there a chance she could become during the next month? No8) Has the patient ever had a serious reaction to a vaccine in the past? No9) Has the patient had a seizure or a brain or other nervous system problem? No10) Has the patient received any vaccinations in the past 4 weeks? No11) Is the patient older than age 49 years? No12) Is the patient sick today? No13) Vaccine information given and explained to patient? YesVaccines Administered/Ente red:Vaccination Group: InfluenzaSeries: 1Vaccination: Flulaval Quadrivalent Intramuscular Suspension Prefilled Syringe 0.5 MLMfr / Lot# / Exp.Date: Agnitus / [id number] 1Amt. Given / Route / Site: 0.5 mL / IM / Left DeltoidNDC / CVX: [id number] / 150Administered Date: 07/17/2020 9:47VFC Eligibility: Not VFC EligibleVIS Date: 05/31/2019VIS Given / VIS Given On: Yes / 07/17/2020Comments: Administered by: Brianna Ruff LPN Initial Intake Information From: patientRoom #: 1Infectious Disease / Travel ScreeningRecent travel for you or any close contacts? NoHave you had any close contact with anyone diagnosed with or under investigation for COVID-19 (coronavirus)? NoFever? NoRespiratory symptoms: cough, cold, congestion, shortness of breath, difficulty breathing? NoLoss of smell? NoLoss of taste? NoSmoking, Tobacco, Vaping or Smoke Exposure StatusSmoke Status: never smokerTobacco Use: NoDo you vape? NoPassive Smoke Exposure: NoHealthcare HistorySince your last office visit...Have you been admitted to the hospital? NoHave you been to an emergency room (ER) or urgent care clinic? No - ER- [facility]- PneumoniaEmergency room (ER) or urgent care date reported today: 05/25/2019Have you seen another healthcare provider? NoHave you seen a dentist? Yes - [facility] dentalIntake performed by: Brianna Ruff LPN, July 17, 2020 8:52 AMRate Your HealthIn general, would you say your health is? Very GoodPain AssessmentAre you currently having any pain which... You would like your provider to address? No Affects your activity level? NoDepression Screening - PHQ-2Over the last two weeks, have you... Had little interest or pleasure in doing things? Not at all Been feeling down, depressed, or hopeless? Not at all PHQ-2 Score: 0Anxiety Screening - NERY-2Over the last two weeks, have you been... Feeling nervous, anxious, or on edge? Not at all Unable to stop or control worrying? Not at all NERY-2 Score: 0Food InsecurityWithin the past year...Did you worry whether your food would run out before you got money to buy more? Never trueWas there a time when the food you bought didn't last and you didn't have money to get more? Never trueScreening, Brief Intervention, & Referral to Treatment (SBIRT)Pre-Screening Questions How many times have you have 5 or more drinks in a day? 0How many times have you used an illegal drug or used a prescription medication for a non- medical reason? 0Performed by: Brianna Ruff LPN, July 17, 2020 8:53 AMPatient History Medical History:Hypertensionlyme disease 2010heart valve issuesSurgical History:wisdom teethFamily History:Heart disease (Maternal Grandfather)Social/Personal History: Chief Complaintfollow-up visitHistory of Present Illness (HPI)Pt is a 45 y/o male, presents for lab review. Pt would like flu vaccine today.Pt had fasting labs drawn 07/09/2020: FBS 105, otherwise unremarkable CMP, normal lipids, normal thyroid, normal vitamin D, no anemia. Negative IgG lyme but positive IgM lyme, indicating new/recent infection; baldomero nt had an unknown bite at last appt in 05/2020. Pt admits to slightly down moods today due to recent news of his father in law being diagnosed with a terminal medical condition; patient declines treatment for his mood at this time. Transitions of Care InboundProblem ReviewProblem List was reviewed and/or updated during this visit.Medication Reconciliation & ReviewMedication List was reviewed and/or updated during this visit, including review of any [id number]-[id number] medications, herbal therapies, and/or supplements.Allergy ReviewAllergy List was reviewed and/or updated during this visit.Adult Prev entive CareLabs/Meds/Other Counseling-Nutrition and Physical Activity:BMI Interpretation: Obese (07/17/2020) Counseling: Done (07/17/2020) Physical Activity: Done (07/17/2020)Review of Systems General: Denies loss of appetite, chills, dizziness, fatigue, fever, headache, feeling ill. Cardiovascular: Denies chest pain, palpitations, feeling faint, peripheral edema. Respiratory: Denies cough, difficulty breathing, shortness of breath, wheezing. Gastrointestinal: Denies nausea, vomiting, diarrhea, pain or discomfort. Musculoskeletal: Denies joint pain, joint swelling, body aches, stiffness. Skin : Denies rash, redness, suspicious lesions. Neurologic: Denies weakness, numbness/tingling, feeling faint. Psychiatric: Complains of see HPI. Denies depression, anxiety. Physical ExamGeneral Appearance: well nourished, well hydrated, no acute distressEyes, External: conjunctivae and lids normal, EOMIRespiratory, Auscultation: clear to auscultation bilaterally; no rales, rhonchi, or wheezesCardiovascular, Auscultation: S1, S2 audible; no murmur, rub, or gallop; RRRPeripheral Circulation: no clubbing, cyanosis, edema, or varicositiesAbdomen: soft, non-tender, no masses, bowel sounds normalGait & Station: normalOrientation: oriented to time, place, and personMood & Affect: no depression, anxiety, or agitationJudgment & Insight: intactCare Management Plan Transitions of CareInboundRate Your HealthIn general, would you say your health is? Very GoodAssessment & Plan Problems:Added: Person consulting for explanation of examination or test findings (ICD-V65.8) (PPS19-E74.2) Assessment: Instructions: 07/09/2020 labs reviewed in detail today.Impaired fasting glycemia (ICD-790.21) (INM52-E53.01) Assessment: Instructions: Slightly elevated fasting sugar on recent labs, A1c done in office today.Lyme disease, unspecified (YGB34-M07.20) Assessment: Instructions: Labs indicate new/recent Lyme infection. Start Doxy twice daily x 14 days. Take antibiotics as prescribed, f inish full course even if symptoms resolve. Antibiotics may cause stomach upset, recommend eating yogurt or taking probiotic while on antibiotics.Encounter for immunization (ICD-V05.9) (LPI82-S21) Assessment: Instructions: Flu vaccine today.Impaired fasting glycemia (ICD-790.21) (ICD10- R73.01) Assessment: Instructions: A1c was normal today at 5.1, recommend low carbohydrate intake and routine exercise. Repeat with routine labs once a year.Assessed:Hyperlipidemia, unspecified (XDV92-G14.5) Assessment: Instructions: Cholesterol well controlled at this time, continue low fat diet and current atorvastatin daily.Obesity (ICD-278.00) (XMB19-U93.09) Assessment: Instructions: Recommend healthy lifestyle modification. Encourage portion control, healthy food choices, and increasing routine physical activity. Recommendation is for 150 minutes throughout the week of cardiovascular exercise.BMI 31.0-31.9 (ICD-V85.31) (OFP84-N86.31) Assessment: Instructions: As above.Benign hypertension (ICD-401.1) (UBH44-T26) Assessment: Instructions: Well controlled with current Losartan. Kidney function is stable with current medication.Patient Instructions/Care Plan: Person consulting for explanation of examination or test findings: 07/09/2020 labs reviewed in detail today.Hyperlipidemia- unspecified: Cholesterol well controlled at this time, continue low fat diet and current atorvastatin daily.Impaired fasting glycemia: Slightly elevated fasting sugar on recent labs, A1c done in office today.Obesity: Recommend healthy lifestyle modification. Encourage portion control, healthy food choices, and increasing routine physical activity. Recommendation is for 150 minutes throughout the week of cardiovascular exercise.BMI 31.0-31.9: As above.Benign hypertension: Well controlled with curr ent Losartan. Kidney function is stable with current medication.Lyme disease- unspecified: Labs indicate new/recent Lyme infection. Start Doxy twice daily x 14 days. Take antibiotics as prescribed, finish full course even if symptoms resolve. Antibiotics may cause stomach upset, recommend eating yogurt or taking probiotic while on antibiotics.Encounter for immunization: Flu vaccine today.Impaired fasting glycemia: A1c was normal today at 5.1, recommend low carbohydrate intake and routine exercise. Repeat with routine labs once a year. Plan developed in collaboration with patient and/or familyMedications:DOXYCYCLINE HYCLATE 100 MG ORAL TABLETACIDOPHILUS ORAL TABLET CHEWABLEATORVASTATIN CALCIUM 10 MG ORAL TABLETALBUTEROL SULFATE HFA 108 (90 BASE) MCG/ACT INHALATION AEROSOL SOLUTIONLOSARTAN POTASSIUM 100 MG ORAL TABLETMedication Changes:Added: ACIDOPHILUS ORAL TABLET CHEWABLE-take 1 tablet po dailyNew Prescription:DOXYCYCLINE HYCLATE 100 MG ORAL TABLET-Take 1 tablet po BID x 14 days Qty: 28[Tablet] Refills: 0 Method: ElectronicAllergies:* CATS (Critical)Orders:Hemoglobin A1C [CPT-82901] FluLaval Quadrivalent, preservative free [CPT-74612] Adult - Ofc Vst, EST, Level IV [CPT-87852] Follow-Up Return to clinic: in 1 year for preventive care visitAdditional Follow-Up: annual PEClinical Visit Summary CompletedLabs In-House Blood TestsTest Result Reference Range Normal [id number]: 5.1 % <=6% non-diabetic; <=7% diabeticAraceli Lemon MA, July 17, 2020 9:34 AM Name Value Range Interpretation Code Description Data Dariana rce(s) Supporting Document(s) ID Date Data Source [id number] 07/17/2020 08:50:33 AM EDT [facility] Name Value Range Interpretation Code Description Data Dariana rce(s) Supporting Document(s) HGBA1C 5.1 % [facility] ID Date Data Source [id number] 07/09/2020 10:22:40 AM EDT [facility] Labs In-House Blood TestsDate/Time Colle cted: July 09, 2020 9:08 AMTest Result Reference Range Normal ValueComments: Labs drawn in office. Taken from right AC. Tolerated well Patti Russell MARY CARMEN, July 09, 2020 10:23 AMAssessment & Plan Orders:[id number] Vst-Est Level I [CPT-27084] 08035 - Venipuncture [CPT-67700] a t 10:51 AM Name Value Range Interpretation Code Description Data Dariana rce(s) Supporting Document(s) ID Date Data Source [id number] 07/09/2020 09:08:00 AM EDT [facility] Name Value Range Interpretation Code Description Data Dariana rce(s) Supporting Document(s) HCT 48.3 % 42.0-52.0 [facility] HGB 16.7 g/dL 13.5-17.5 [facility] MCH 34.6 G/DL pg 32.0-36.5 N [facility] MCHC 30.5 PG % 27.0-33.0 [facility] PLATELETS 286 10 10*3/mm3 150-450 N [facility] RBC 5.48 10 10*6/mm3 4.30-6.10 [facility] RDW 12.3 % 11.5-14.5 [facility] WBC TOTAL 6.9 4.0-10.0 [facility] ID Date Data Source [id number] 07/09/2020 09:08:00 AM EDT [facility] Name Value Range Interpretation Code Description Data Dariana rce(s) Supporting Document(s) VIT D25 TOT 58.2 ng/mL 30.0-100.0 N [facility] BG FASTING 105 mg/dL 70-[address] [facility] T4, FREE 1.03 ng/dL 0.76-1.[address] [facility] TSH 2.850 microintl units/mL 0.358-3.740 N [facility] Procedure Social History Code Duration Value Status Description Data Source(s ) Smoking 12/26/2020 12:00:00 AM EST Never Smoker completed Never S steve eCW1 ([facility]) Vital Signs ID Date Data Source UNK Name Value Range Interpretation Code Description Data Source(s) Systolic blood pressure 120 mm[Hg] 120 mm[Hg] Aide CHILD ([facility]) Diastolic blood pressure 82 mm[Hg] 82 mm[Hg] [facility] ([facility]) Body temperature 98.7 [degF] 98.7 [degF] [facility] ([facility]) Body height 71 [in_i] 71 [in_i] [facility] ([facility]) 5'11" Body weight 236.00 [lb_av] 236.00 [lb_av] [facility] T ([facility]) Body mass index (BMI) [Ratio] 32.9 kg/m2 32.9 k g/m2 [facility] ([facility]) [place] body weight 172 [lb_av] 172 [lb_av] MEDEN T ([facility]) Body weight 107.050 kg 107.050 kg [facility] ([facility]) Body surface area Derived from formula 2.26 m2 2.26 m2 [facility] ([facility]) Diastolic blood pressure 88 mm[Hg] 88 mm[Hg] CAPO ([facility]) Diastolic blood pressure 79 mm[Hg] 79 mm[Hg] [facility] ([facility]) Body mass index (BMI) [Ratio] 32.9 kg/m2 32.9 k g/m2 [facility] ([facility]) Systolic blood pressure 134 mm[Hg] 134 mm[Hg] A THENA ([facility]) Systolic blood pressure 141 mm[Hg] 141 mm[Hg] A THENA ([facility]) Body weight 3776 [oz_av] 3776 [oz_av] CAPO ([facility]) Body height 71 [in_i] 71 [in_i] [facility] ([facility]) Diastolic blood pressure 88 mm[Hg] 88 mm[Hg] [facility] ([facility]) Systolic blood pressure 141 mm[Hg] 141 mm[Hg] A THENA ([facility]) Body weight 3776 [oz_av] 3776 [oz_av] [facility] ([facility]) Diastolic blood pressure 79 mm[Hg] 79 mm[Hg] [facility] ([facility]) Body height 71 [in_i] 71 [in_i] [facility] ([facility]) Body mass index (BMI) [Ratio] 32.9 kg/m2 32.9 k g/m2 [facility] ([facility]) Systolic blood pressure 134 mm[Hg] 134 mm[Hg] A THENA ([facility]) Body weight 227 [lb_av] 227 [lb_av] eCW1 ([facility]) Body height 71 [in_i] 71 [in_i] eCW1 ([facility] Body mass index (BMI) [Ratio] 31.66 kg/m2 31.66 kg/m2 [facility] ([facility]) Systolic blood pressure 129 mm[Hg] 129 mm[Hg] e CW1 ([facility]) Diastolic blood pressure 81 mm[Hg] 81 mm[Hg] eCW1 ([facility]) Diastolic blood pressure 84 mm[Hg] 84 mm[Hg] CAPO ([facility]) Body height 71 [in_i] 71 [in_i] CAPO ([facility]) Body mass index (BMI) [Ratio] 32.31 kg/m2 32.31 kg/m2 CAP[facility] ([facility]) Systolic blood pressure 133 mm[Hg] 133 mm[Hg] A THENA ([facility]) Body weight 3692.8 [oz_av] 3692.8 [oz_av] ATHEN A ([facility]) Diastolic blood pressure 84 mm[Hg] 84 mm[Hg] CAPO ([facility]) Body height 71 [in_i] 71 [in_i] CAPO ([facility]) Body mass index (BMI) [Ratio] 32.31 kg/m2 32.31 kg/m2 CAP[facility] ([facility]) Systolic blood pressure 133 mm[Hg] 133 mm[Hg] A THENA ([facility]) Body weight 3692.8 [oz_av] 3692.8 [oz_av] ATHEN A ([facility]) Oxygen saturation in Arterial blood by Pulse oximetry 99 % 99 % MEDENT ([facility]) Body temperature 98.7 [degF] 98.7 [degF] MEDENT ([facility], [facility]) Body weight 215.00 [lb_av] 215.00 [lb_av] MEDEN T ([facility], [facility]) Body height 71 [in_i] 71 [in_i] MEDENT ([facility], [facility]) 5'11" Body mass index (BMI) [Ratio] 30.0 kg/m2 30.0 k g/m2 MEDENT ([facility], [facility]) Diastolic blood pressure 80 mm[Hg] 80 mm[Hg] MEDENT ([facility], [facility]) Heart rate 78 /min 78 /min MEDENT ([facility], [facility]) Respiratory rate 16 /min 16 /min MEDENT ( [facility], [facility]) Systolic blood pressure 130 mm[Hg] 130 mm[Hg] M EDENT ([facility], [facility]) Diastolic blood pressure 87 mm[Hg] 87 mm[Hg] CAPO ([facility]) Body mass index (BMI) [Ratio] 32.19 kg/m2 32.19 kg/m2 CAPO ([facility]) Systolic blood pressure 136 mm[Hg] 136 mm[Hg] A THENA ([facility]) Body weight 3680 [oz_av] 3680 [oz_av] CAPO ([facility]) Body height 71 [in_i] 71 [in_i] CAPO ([facility]) Diastolic blood pressure 87 mm[Hg] 87 mm[Hg] CAPO ([facility]) Body height 71 [in_i] 71 [in_i] CAPO ([facility]) Body mass index (BMI) [Ratio] 32.19 kg/m2 32.19 kg/m2 CAPO ([facility]) Systolic blood pressure 136 mm[Hg] 136 mm[Hg] Suzanne ESPANA ([facility]) Body weight 3680 [oz_av] 3680 [oz_av] CAPO ([facility])
[2021-08-19] MEDS ORDERED: LIDOCAINE 2% 100MG/5ML SDV (FOR ANES.) As Ordered ONE (10:01)
[2021-08-19] MEDS ORDERED: propofoL 200 MG/20 ML VIAL As Ordered ONE (10:01)
--- NOTE | 2021-08-19 11:18 | ROOR ---
Patient Name: Orion Soria Procedure Date: 08/19/2021 10:57 AM Date of : 1975 Age: 46 Room: [facility]AC[facility] Gender: Male Note Status: Finalized Procedure: Colonoscopy Indications: Screening for colorectal malignant neoplasm Providers: Chemo Ceballos MD Referring MD: GHASSAN Ying Requesting Provider: Medicines: Monitored Anesthesia Care Complications: No immediate complications. Procedure: Pre-Anesthesia Assessment: - Prior to the procedure, a History and Physical was performed, and patient medications and allergies were reviewed. The patient is competent. The risks and benefits of the procedure and the sedation options and risks were discussed with the patient. All questions were answered and informed consent was obtained. Patient identification and proposed procedure were verified by the physician, the nurse and the anesthesiologist in the endoscopy suite. Mental Status Examination: alert and oriented. Airway Examination: normal oropharyngeal airway and neck mobility. Respiratory Examination: clear to auscultation. CV Examination: normal. Prophylactic Antibiotics: The patient does not require prophylactic antibiotics. Prior Anticoagulants: The patient has taken no previous anticoagulant or antiplatelet agents. ASA Grade Assessment: II - A patient with mild systemic disease. After reviewing the risks and benefits, the patient was deemed in satisfactory condition to undergo the procedure. The anesthesia plan was to use monitored anesthesia care (MAC). Immediately prior to administration of medications, the patient was re-assessed for adequacy to receive sedatives. The heart rate, respiratory rate, oxygen saturations, blood pressure, adequacy of pulmonary ventilation, and response to care were monitored throughout the procedure. The physical status of the patient was re-assessed after the procedure. The Colonoscope was introduced through the anus and advanced to the cecum, identified by appendiceal orifice and ileocecal valve. The colonoscopy was performed without difficulty. The patient tolerated the procedure fairly well. Findings: The perianal and digital rectal examinations were normal. There is no endoscopic evidence of bleeding, diverticula, inflammation, mass, polyps or stenosis in the entire colon. The retroflexed view of the distal rectum and anal verge was normal and showed no anal or rectal abnormalities. Impression: - The distal rectum and anal verge are normal on retroflexion view. - No specimens collected. Recommendation: - Discharge patient to home (ambulatory). - Repeat colonoscopy in 10 years for screening purposes. Procedure Code(s): --- Professional --- 98591, Colonoscopy, flexible; diagnostic, including collection of specimen(s) by brushing or washing, when performed (separate procedure) Diagnosis Code(s): --- Professional --- Z12.11, Encounter for screening for malignant neoplasm of colon CPT copyright 2019 [employer]. All rights reserved. The codes documented in this report are preliminary and upon pyrotechnic mixer review may be revised to meet current compliance requirements. Chemo Ceballos MD Chemo Ceballos MD 08/19/2021 11:17:40 AM Electronically signed by Chemo Ceballos MD Number of Addenda: 0 Note Initiated On: 08/19/2021 10:57 AM Estimated Blood Loss: Estimated blood loss: none.
[2021-08-19 11:40] VITALS: BP 133/93
== END 2021-08-19 11:45 | disposition home or self-care (01) ==
LOC: M OPP 09:55
PROVIDERS: ATTEND Surgery
DX: Z12.11 Encounter for screening for malignant neoplasm of colon (principal); Z79.899 Other long term (current) drug therapy

== ENCOUNTER → 2022-01-01 | Outpatient (REF) | payer OTHER ==
[~2022-01-01] MED LIST changes: +LOSA100T45 PO; -LOSA100T50 PO; +LOSA50TA28 PO; -LOSA50TA88 PO; -NS 1,000 ML IV ONE
== END ==
LOC: M SFHCDERM 17:30
PROVIDERS: ATTEND Nurse Practitioner Family
DX: L73.9 Follicular disorder, unspecified (principal)

== ENCOUNTER 2022-03-06 11:00 | Emergency (ER) | payer BC, OTHER ==
[~2022-03-06] VITALS: Ht 180.3 cm; Wt 108.1 kg
[2022-03-06 11:01] VITALS: BP 156/96
[2022-03-06] MEDS ORDERED: NAPR220C14 PO (11:07)
[2022-03-06] MEDS ORDERED: LIDOCAINE 1% MDV 20ML VIAL SC ONE (11:10)
[2022-03-06] MEDS ORDERED: DERMABOND TOPICAL SKIN ADHESIVE TOP ONE (11:40)
[2022-03-06] MEDS ORDERED: CEPH500C PO (11:51)
== END 2022-03-06 11:58 | disposition home or self-care (01) ==
LOC: M ED 11:00
DX: S61.201A Unspecified open wound of left index finger without damage to nail, initial encounter (principal); S61.202A Unspecified open wound of right middle finger without damage to nail, initial encounter; W26.0XXA Contact with knife, initial encounter; Y92.9 Unspecified place or not applicable; Y93.9 Activity, unspecified; Y99.9 Unspecified external cause status

== ENCOUNTER 2022-03-13 10:51 | Emergency (ER) | payer BC, OTHER ==
[~2022-03-13] VITALS: Ht 152.4 cm; Wt 102.3 kg
[~2022-03-13 10:51] MED LIST changes: +CEPH500C PO; +NAPR220C14 PO
[2022-03-13 10:52] VITALS: BP 130/83
== END 2022-03-13 12:04 | disposition left against medical advice (07) ==
LOC: M ED 10:51
DX: Z53.21 Procedure and treatment not carried out due to patient leaving prior to being seen by health care provider (principal)

== ENCOUNTER → 2022-09-08 | Outpatient (CLI) | payer BC, OTHER ==
[2022-09-08 08:22] LABS: HEMATOCRIT 45.4 % (42.0-52.0); HEMOGLOBIN 15.7 g/dl (13.5-17.5); MEAN CORPUSCULAR HGB CONC 34.6 g/dl (32.0-36.5); MEAN CORPUSCULAR VOLUME 86.8 fl (80.0-96.0); PLATELET COUNT, AUTOMATED 292 10^3/uL (150-450); RED BLOOD COUNT 5.23 10^6/uL (4.30-6.10); WHITE BLOOD COUNT 7.1 10^3/uL (4.0-10.0)
[2022-09-08 09:50] LABS: ALBUMIN 4.2 G/DL (3.2-5.2); ALT/SGPT 41 U/L (7.0-40); BILIRUBIN,TOTAL 0.6 MG/DL (0.3-1.2); BLOOD UREA NITROGEN 19 MG/DL (9-23); CALCIUM LEVEL 9.4 MG/DL (8.5-10.1); CARBON DIOXIDE LEVEL 26 MMOL/L (20-31); CHLORIDE LEVEL 105 MMOL/L (98-107); CHOLESTEROL LEVEL 147 MG/DL (<200); CHOLESTEROL RISK RATIO 4.18 (<5); CREATININE FOR GFR 0.95 MG/DL (0.70-1.30); GLUCOSE, FASTING 114 MG/DL (60-100); HDL CHOLESTEROL 35.1 MG/DL (>40); LDL CHOLESTEROL 85.3 MG/DL (<100); POTASSIUM SERUM 4.8 MMOL/L (3.5-5.1); SODIUM LEVEL 137 MMOL/L (136-145); THYROID STIMULATING HORMONE 2.021 uIU/ML (0.55-4.78); TRIGLYCERIDES LEVEL 133 MG/DL (<150)
[2022-09-08 11:30] LABS: HEMOGLOBIN A1c 5.2 % (4.0-6.0)
== END ==
LOC: M LAB 07:37
PROVIDERS: ATTEND Physician Assistant
DX: R73.01 Impaired fasting glucose (principal); I10 Essential (primary) hypertension

== ENCOUNTER → 2023-02-25 | Outpatient (REF) | payer OTHER ==
[~2023-02-25] MED LIST changes: -LOSA100T45 PO; +LOSA100T46 PO
[2023-02-25 17:22] LABS: HEMATOCRIT 44.5 % (42.0-52.0); HEMOGLOBIN 15.3 g/dl (13.5-17.5); MEAN CORPUSCULAR HEMOGLOBIN 30.2 pg (27.0-33.0); MEAN CORPUSCULAR HGB CONC 34.4 g/dl (32.0-36.5); MEAN CORPUSCULAR VOLUME 87.8 fl (80.0-96.0); PLATELET COUNT, AUTOMATED 309 10^3/uL (150-450); RED BLOOD COUNT 5.07 10^6/uL (4.30-6.10); WHITE BLOOD COUNT 6.4 10^3/uL (4.0-10.0)
[2023-02-25 17:46] LABS: ALBUMIN 3.7 G/DL (3.2-5.2); ALKALINE PHOSPHATASE 104 U/L (46-116); ALT/SGPT 35 U/L (7.0-40); AST/SGOT 18 U/L (<34); BILIRUBIN,TOTAL 0.5 MG/DL (0.3-1.2); BLOOD UREA NITROGEN 20 MG/DL (9-23); CALCIUM LEVEL 9.4 MG/DL (8.5-10.1); CARBON DIOXIDE LEVEL 28 MMOL/L (20-31); CHLORIDE LEVEL 107 MMOL/L (98-107); CHOLESTEROL LEVEL 127 MG/DL (<200); CREATININE FOR GFR 1.01 MG/DL (0.70-1.30); GLOMERULAR FILTRATION RATE > 60.0 (>60); GLUCOSE, FASTING 96 MG/DL (60-100); HDL CHOLESTEROL 39.6 MG/DL (>40); LDL CHOLESTEROL 67.8 MG/DL (<100); NON-HDL-C 87.4 MG/DL; POTASSIUM SERUM 5.2 MMOL/L (3.5-5.1); SODIUM LEVEL 139 MMOL/L (136-145); TOTAL PROTEIN 6.6 G/DL (5.7-8.2); TRIGLYCERIDES LEVEL 98 MG/DL (<150)
[2023-02-25 17:50] LABS: HEMOGLOBIN A1c 5.2 % (4.0-6.0)
== END ==
LOC: M LAB REF 16:37
PROVIDERS: ATTEND Physician Assistant
DX: I10 Essential (primary) hypertension (principal); E78.5 Hyperlipidemia, unspecified; R73.01 Impaired fasting glucose

== ENCOUNTER → 2023-03-15 | Outpatient (REF) | payer OTHER | LOC: M LAB REF 17:49 | PROVIDERS: ATTEND Physician Assistant | DX: E78.5 Hyperlipidemia, unspecified (principal) ==

== ENCOUNTER 2023-03-26 10:01 | Emergency (ER) | payer BC, OTHER ==
[~2023-03-26] VITALS: Ht 180.3 cm; Wt 104.6 kg
[2023-03-26] MEDS ORDERED: DULC5TAB PO (10:25)
[2023-03-26] MEDS ORDERED: LINZ145C PO (10:25)
[2023-03-26 11:02] LABS: BASO # 0.1 10^3/uL (0.0-0.2); BASO % 0.6 % (0.0-1.0); EOS # 0.2 10^3/uL (0.0-0.5); EOS % 1.9 % (0.0-3.0); HEMATOCRIT 45.5 % (42.0-52.0); HEMOGLOBIN 15.7 g/dl (13.5-17.5); LYMPH % 23.2 % (24.0-44.0); MEAN CORPUSCULAR HEMOGLOBIN 29.7 pg (27.0-33.0); MEAN CORPUSCULAR HGB CONC 34.5 g/dl (32.0-36.5); MONO # 0.7 10^3/uL (0.0-0.8); MONO % 7.7 % (2.0-8.0); NEUTROPHILS # 5.5 10^3/uL (1.5-8.5); NEUTROPHILS % 65.6 % (36.0-66.0); PLATELET COUNT, AUTOMATED 299 10^3/uL (150-450); RED BLOOD COUNT 5.29 10^6/uL (4.30-6.10); WHITE BLOOD COUNT 8.4 10^3/uL (4.0-10.0)
[2023-03-26 11:30] LABS: LIPASE 56 U/L (12-53)
[2023-03-26 11:33] LABS: ALBUMIN 4.1 G/DL (3.2-5.2); ALKALINE PHOSPHATASE 108 U/L (46-116); ALT/SGPT 40 U/L (7.0-40); AST/SGOT 21 U/L (<34); BILIRUBIN,DIRECT 0.1 MG/DL (<0.4); BILIRUBIN,TOTAL 0.5 MG/DL (0.3-1.2); BLOOD UREA NITROGEN 17 MG/DL (9-23); CALCIUM LEVEL 9.1 MG/DL (8.5-10.1); CARBON DIOXIDE LEVEL 25 MMOL/L (20-31); CHLORIDE LEVEL 104 MMOL/L (98-107); CREATININE FOR GFR 0.96 MG/DL (0.70-1.30); GLOMERULAR FILTRATION RATE > 60.0 (>60); GLUCOSE, FASTING 100 MG/DL (60-100); POTASSIUM SERUM 4.6 MMOL/L (3.5-5.1); SODIUM LEVEL 137 MMOL/L (136-145); TOTAL PROTEIN 7.2 G/DL (5.7-8.2)
[2023-03-26] MEDS: GASTROGRAFIN SOLUTION 30ML PO SCH ×2 (11:41→11:44)
[2023-03-26] MEDS ORDERED: ISOVUE-370 76% 100ML VIAL As Ordered ONE (13:04)
[2023-03-26] MEDS ORDERED: FLEET ENEMA PR STA (14:01)
[2023-03-26] MEDS ORDERED: COLA100C5 PO (14:04)
[2023-03-26 14:16] VITALS: O2SAT 97
[2023-03-26 15:10] VITALS: BP 147/87; TEMP 98.2
== END 2023-03-26 15:17 | disposition home or self-care (01) ==
LOC: M ED 10:01
DX: K59.00 Constipation, unspecified (principal); I10 Essential (primary) hypertension; Z79.899 Other long term (current) drug therapy
CPT/HCPCS: 36415; 74177; 80048; 80076; 83690; 85025; 99284; Q9963; Q9967

== ENCOUNTER → 2023-08-17 | Outpatient (REF) | payer OTHER ==
[~2023-08-17] MED LIST changes: +COLA100C5 PO; +DULC5TAB PO; +LINZ145C PO
[2023-08-17 17:28] LABS: HEMATOCRIT 45.1 % (42.0-52.0); HEMOGLOBIN 15.8 g/dl (13.5-17.5); MEAN CORPUSCULAR HEMOGLOBIN 30.3 pg (27.0-33.0); MEAN CORPUSCULAR VOLUME 86.4 fl (80.0-96.0); PLATELET COUNT, AUTOMATED 263 10^3/uL (150-450); RED BLOOD COUNT 5.22 10^6/uL (4.30-6.10); WHITE BLOOD COUNT 7.7 10^3/uL (4.0-10.0)
[2023-08-17 17:49] LABS: HEMOGLOBIN A1c 5.2 % (4.0-6.0)
[2023-08-17 17:53] LABS: THYROID STIMULATING HORMONE 2.565 uIU/ML (0.55-4.78)
[2023-08-17 17:54] LABS: ALBUMIN 3.7 G/DL (3.2-5.2); ALKALINE PHOSPHATASE 95 U/L (46-116); ALT/SGPT 39 U/L (7.0-40); AST/SGOT 28 U/L (<34); BILIRUBIN,TOTAL 0.5 MG/DL (0.3-1.2); BLOOD UREA NITROGEN 17 MG/DL (9-23); CALCIUM LEVEL 9.4 MG/DL (8.5-10.1); CARBON DIOXIDE LEVEL 28 MMOL/L (20-31); CHLORIDE LEVEL 103 MMOL/L (98-107); CHOLESTEROL LEVEL 183 MG/DL (<200); CHOLESTEROL RISK RATIO 4.14 (<5); CREATININE FOR GFR 0.93 MG/DL (0.70-1.30); GLOMERULAR FILTRATION RATE > 60.0 (>60); GLUCOSE, FASTING 98 MG/DL (60-100); HDL CHOLESTEROL 44.2 MG/DL (>40); NON-HDL-C 138.8 MG/DL; POTASSIUM SERUM 4.8 MMOL/L (3.5-5.1); SODIUM LEVEL 138 MMOL/L (136-145); TOTAL PROTEIN 6.8 G/DL (5.7-8.2); TRIGLYCERIDES LEVEL 159 MG/DL (<150)
== END ==
LOC: M LAB REF 16:48
PROVIDERS: ATTEND Physician Assistant
DX: E66.9 Obesity, unspecified (principal); E78.5 Hyperlipidemia, unspecified; I10 Essential (primary) hypertension

== ENCOUNTER → 2023-11-03 | Outpatient (REF) | payer OTHER, BC | LOC: M LAB REF 16:21 | PROVIDERS: ATTEND Physician Assistant | DX: J06.9 Acute upper respiratory infection, unspecified (principal); M79.10 Myalgia, unspecified site; R05.1 Acute cough; R09.82 Postnasal drip ==

== ENCOUNTER → 2025-09-18 | Outpatient (REF) | payer OTHER ==
[2025-09-18 19:16] LABS: ALT/SGPT 53 U/L (7.0-40); AST/SGOT 30 U/L (<34); CALCIUM LEVEL 9.7 MG/DL (8.5-10.1); CARBON DIOXIDE LEVEL 29 MMOL/L (20-31); CHLORIDE LEVEL 102 MMOL/L (98-107); CHOLESTEROL LEVEL 156 MG/DL (<200); CHOLESTEROL RISK RATIO 2.62 (<5); CREATININE FOR GFR 0.92 MG/DL (0.70-1.30); GLOMERULAR FILTRATION RATE > 90.0 (>60); LDL CHOLESTEROL 74.6 MG/DL (<100); NON-HDL-C 96.6 MG/DL; POTASSIUM SERUM 5.3 MMOL/L (3.5-5.1); SODIUM LEVEL 140 MMOL/L (136-145); TRIGLYCERIDES LEVEL 110 MG/DL (<150)
== END ==
LOC: M LAB REF 18:28
PROVIDERS: ATTEND Nurse Practitioner Family
DX: E78.5 Hyperlipidemia, unspecified (principal); I10 Essential (primary) hypertension